=== PATIENT | female | born 1935 | race Caucasian/White ===

== ENCOUNTER → 2016-09-05 | Outpatient (REF) | payer OTHER, MEDICAID ==
[~2016-09-05] MED LIST: /FENO48TA OR; /FENT25PA TOP; /PANT40TA OR; /SUCR1TA OR; /WARF25TA OR; /WARF5TA OR; ACET65TA OR; AMLO10TA OR; BACT2CRE EX; CLAR5CHW OR; COLA100C2 OR; COUM10TA OR; DIGO0.126 OR; GLUC1000 OR; HYDR25TA7 OR; Januvia OR; KENOLOG; KENOLOG TOP; LASI20TA OR; LIDO5DIS TD; LISI10TA4 OR; LOPR50TA OR; Lovaza OR; MAGN500T2 OR; METF500T4 OR; NEUR300C OR; NIZORAL 2% TOP; OMEP20TA7 OR; PERC5TAB8 OR; POTA10CA2 OR; PROZ20CA OR; SIMV20TA2 OR; TRAM50TA2 OR; VIT D 2000 OR; VITAMIN D50000 UNT OR; VYTO10TA5 OR; ZEBE5TAB OR; ZOCO40TA OR; [UNRECOGNIZED DRUG - OTHER] PO; aquaphor TOP; bacid OR; cholecalciferol OR; nystatin powder TOP
== END ==
LOC: M SFHCPLAZ 17:14
PROVIDERS: ATTEND Dermatology
DX: H66.90 Otitis media, unspecified, unspecified ear (principal); L08.9 Local infection of the skin and subcutaneous tissue, unspecified
CPT/HCPCS: 87070; 87077; 87186; G0463

== ENCOUNTER → 2016-09-19 | Outpatient (REF) | payer OTHER, MEDICAID | LOC: M SFHCPLAZ 12:48 | PROVIDERS: ATTEND Dermatology | DX: L01.03 Bullous impetigo (principal) | CPT/HCPCS: 87070; 87077; 87186; G0463 ==

== ENCOUNTER → 2016-09-20 | Outpatient (CLI) | payer OTHER, MEDICAID ==
[2016-09-20 14:40] LABS: MEAN CORPUSCULAR HEMOGLOBIN 30.7 pg (27.0-33.0); MEAN CORPUSCULAR HGB CONC 31.1 g/dl (32.0-36.5); MEAN CORPUSCULAR VOLUME 98.7 fl (80.0-96.0); RED CELL DISTRIBUTION WIDTH 14.1 % (11.5-14.5); WHITE BLOOD COUNT 4.8 K/mm3 (4.0-10.0)
[2016-09-20 16:02] LABS: ALBUMIN 3.2 GM/DL (3.2-5.2); ALBUMIN/GLOBULIN RATIO 0.91 (1.00-1.93); BILIRUBIN,TOTAL 0.4 MG/DL (0.2-1.0); CALCIUM LEVEL 8.5 MG/DL (8.8-10.2); CREATININE FOR GFR 1.4 MG/DL (0.55-1.02); DIGOXIN LEVEL 0.1 NG/ML (0.5-2.0); FREE T4 1.02 NG/DL (0.76-1.46); GLOMERULAR FILTRATION RATE 38.6 (>39); POTASSIUM SERUM 4.3 MEQ/L (3.5-5.1); TOTAL PROTEIN 6.7 GM/DL (6.4-8.2); URIC ACID 5.7 MG/DL (2.6-6.0)
== END ==
LOC: M WUC 13:18
PROVIDERS: ATTEND Nurse Practitioner Family
DX: I10 Essential (primary) hypertension (principal); E55.9 Vitamin D deficiency, unspecified; E78.00 Pure hypercholesterolemia, unspecified; Z79.899 Other long term (current) drug therapy; M10.9 Gout, unspecified

== ENCOUNTER → 2016-10-17 | Outpatient (REF) | payer OTHER, MEDICAID ==
[2016-10-17 16:17] LABS: INR 2.53
== END ==
LOC: M SFHCPLAZ 14:03
PROVIDERS: ATTEND Dermatology
DX: Z51.81 Encounter for therapeutic drug level monitoring (principal); Z79.899 Other long term (current) drug therapy; L98.9 Disorder of the skin and subcutaneous tissue, unspecified
CPT/HCPCS: 36415; 85610; 87070; 87077; 87186; G0463

== ENCOUNTER → 2016-12-19 | Outpatient (REF) | payer OTHER, MEDICAID | LOC: M LAB REF 12:50 | PROVIDERS: ATTEND Physician Assistant Medical | DX: H60.8X3 Other otitis externa, bilateral (principal) ==

== ENCOUNTER → 2016-12-27 | Outpatient (REF) | payer OTHER, MEDICAID ==
[2016-12-27 19:55] LABS: ALBUMIN/GLOBULIN RATIO 0.94 (1.00-1.93); BILIRUBIN,TOTAL 0.5 MG/DL (0.2-1.0); CALCIUM LEVEL 8.7 MG/DL (8.8-10.2); CREATININE FOR GFR 1.46 MG/DL (0.55-1.02); DIGOXIN LEVEL 0.1 NG/ML (0.5-2.0); FREE T4 1.01 NG/DL (0.76-1.46); GLOMERULAR FILTRATION RATE 36.8 (>39); POTASSIUM SERUM 4.6 MEQ/L (3.5-5.1); TOTAL PROTEIN 6.2 GM/DL (6.4-8.2); URIC ACID 5.7 MG/DL (2.6-6.0)
== END ==
LOC: M LAB REF 17:14
PROVIDERS: ATTEND Nurse Practitioner Family
DX: E78.5 Hyperlipidemia, unspecified (principal); N18.9 Chronic kidney disease, unspecified; I48.0 Paroxysmal atrial fibrillation; E03.9 Hypothyroidism, unspecified; I12.9 Hypertensive chronic kidney disease with stage 1 through stage 4 chronic kidney disease, or unspecified chronic kidney disease; E55.9 Vitamin D deficiency, unspecified

== ENCOUNTER → 2017-01-01 | Outpatient (CLI) | payer OTHER, MEDICAID ==
[2017-01-01 13:23] LABS: ALBUMIN 3.1 GM/DL (3.2-5.2); ALBUMIN/GLOBULIN RATIO 0.89 (1.00-1.93); BILIRUBIN,DIRECT 0.2 MG/DL (0.0-0.2); BILIRUBIN,TOTAL 0.4 MG/DL (0.2-1.0); TOTAL PROTEIN 6.6 GM/DL (6.4-8.2)
== END ==
LOC: M WUC 10:06
PROVIDERS: ATTEND Nurse Practitioner Family
DX: Q82.8 Other specified congenital malformations of skin (principal); Z79.899 Other long term (current) drug therapy

== ENCOUNTER → 2017-02-15 | Outpatient (REF) | payer OTHER, MEDICAID | LOC: M LAB REF 16:47 | PROVIDERS: ATTEND Internal Medicine Nephrology | DX: N18.3 Chronic kidney disease, stage 3 (moderate) (principal); Z87.440 Personal history of urinary (tract) infections; Z79.899 Other long term (current) drug therapy ==

== ENCOUNTER → 2017-04-17 | Outpatient (CLI) | payer OTHER ==
[2017-04-17 18:31] LABS: INR 2.92
== END ==
LOC: M WUC 11:27
PROVIDERS: ATTEND Nurse Practitioner Family
DX: I48.91 Unspecified atrial fibrillation (principal)

== ENCOUNTER → 2017-09-24 | Outpatient (CLI) | payer MEDICARE ==
[2017-09-24 15:38] LABS: INR 1.33; PROTHROMBIN TIME 16.8 SECONDS (12.4-14.5)
== END ==
LOC: M LAB 14:43
DX: Z51.81 Encounter for therapeutic drug level monitoring (principal); Z79.01 Long term (current) use of anticoagulants; M79.604 Pain in right leg
CPT/HCPCS: 93971

== ENCOUNTER → 2017-11-27 | Outpatient (REF) | payer MEDICARE ==
[2017-11-27 12:42] LABS: APPEARANCE, URINE TURBID (CLEAR); BACTERIA, URINE AUTO 3+ (NEGATIVE); BILIRUBIN, URINE AUTO NEGATIVE (NEGATIVE); BLOOD, URINE BLOOD NEGATIVE (NEGATIVE); COLOR, URINE YELLOW (YELLOW); GLUCOSE, URINE (UA) AUTO NEGATIVE (NEGATIVE); KETONE, URINE AUTO NEGATIVE (NEGATIVE); LEUKOCYTE ESTERASE, URINE AUTO TRACE (NEGATIVE); MUCUS, URINE SMALL (NEGATIVE); NITRITE, URINE AUTO POSITIVE (NEGATIVE); PROTEIN, URINE AUTO 1+ mg/dL (NEGATIVE); RBC, URINE AUTO 8 /HPF (0-3); SPECIFIC GRAVITY URINE AUTO 1.017 (1.002-1.035); SQUAMOUS EPITHELIAL CELL UR AU 4 /HPF (0-6); TRIPLE PHOSPHATE CRYSTALS SMALL; UROBILINOGEN, URINE AUTO 0.2 mg/dL (0.0-2.0); WBC, URINE AUTO 24 /HPF (0-3)
== END ==
LOC: M LAB REF 12:19
DX: N39.0 Urinary tract infection, site not specified (principal)
CPT/HCPCS: 81001

== ENCOUNTER → 2017-12-03 | Outpatient (CLI) | payer MEDICARE | LOC: M WUC 12:07 | DX: M25.511 Pain in right shoulder (principal) | CPT/HCPCS: 73000 ==

== ENCOUNTER 2017-12-17 15:28 | Emergency (ER) | payer MEDICARE ==
[2017-12-17] MEDS: ONDANSETRON 4MG/2ML VIAL (J2405) IV (16:30)
[2017-12-17] MEDS: NS 500 ML IV (16:30)
[2017-12-17 16:51] LABS: BASO % 0.4 % (0.0-1.0); HEMATOCRIT 39.8 % (36.0-47.0); HEMOGLOBIN 12.4 g/dl (12.0-15.5); IMMATURE GRANULOCYTE % 0.2 % (0-3.0); LYMPH # 1.6 10^3/uL (1.5-4.5); MEAN CORPUSCULAR HEMOGLOBIN 30.4 pg (27.0-33.0); MEAN CORPUSCULAR HGB CONC 31.2 g/dl (32.0-36.5); MEAN CORPUSCULAR VOLUME 97.5 fl (80.0-96.0); MONO # 0.6 10^3/uL (0.0-0.8); MONO % 12.8 % (0.0-5.0); NEUTROPHILS # 2.6 10^3/uL (1.8-7.7); NEUTROPHILS % 54.6 % (36.0-66.0); PLATELET COUNT, AUTOMATED 235 10^3/uL (150-450); RED BLOOD COUNT 4.08 10^6/uL (4.00-5.40); RED CELL DISTRIBUTION WIDTH 14.5 % (11.5-14.5); WHITE BLOOD COUNT 4.8 10^3/uL (4.0-10.0)
[2017-12-17 16:53] LABS: INR 2.51; PROTHROMBIN TIME 27.6 SECONDS (12.1-14.4)
[2017-12-17 16:54] LABS: PARTIAL THROMBOPLASTIN TIME 51.8 SECONDS (25.4-37.6)
[2017-12-17 17:05] LABS: ALBUMIN/GLOBULIN RATIO 0.86 (1.00-1.93); ALKALINE PHOSPHATASE 58 U/L (45-117); ALT/SGPT 24 U/L (12-78); AMYLASE 157 U/L (25-115); ANION GAP 7 MEQ/L (8-16); AST/SGOT 28 U/L (7-37); BILIRUBIN,DIRECT 0.1 MG/DL (0.0-0.2); BILIRUBIN,TOTAL 0.3 MG/DL (0.2-1.0); BLOOD UREA NITROGEN 32 MG/DL (7-18); CALCIUM LEVEL 8.2 MG/DL (8.8-10.2); CARBON DIOXIDE LEVEL 28 MEQ/L (21-32); CHLORIDE LEVEL 111 MEQ/L (98-107); CK-MB VALUE MASS 3.3 NG/ML (<3.6); CPK CREATINE PHOSPHOKINASE 165 U/L (26-192); CREATININE FOR GFR 1.42 MG/DL (0.55-1.30); GLOMERULAR FILTRATION RATE 37.9 (>32); GLUCOSE, FASTING 128 MG/DL (70-100); LIPASE 213 U/L (73-393); POTASSIUM SERUM 4.7 MEQ/L (3.5-5.1); SODIUM LEVEL 146 MEQ/L (136-145); TOTAL PROTEIN 6.5 GM/DL (6.4-8.2); TROPONIN I < 0.02 NG/ML (< 0.10)
[2017-12-17 17:09] LABS: LACTIC ACID SEPSIS PROTOCOL 1.6 MMOL/L (0.4-2.0)
[2017-12-17] MEDS: NS 1,000 ML IV (17:30)
[2017-12-17 17:51] LABS: KETONE, URINE AUTO RFX NEGATIVE (NEGATIVE); NITRITE, URINE AUTO RFX NEGATIVE (NEGATIVE); RBC, URINE AUTO RFX 1 /HPF (0-3); SPECIFIC GRAVITY UR AUTO RFX 1.014 (1.002-1.035); SQUAM EPITHELIAL CELL UR AURFX 1 /HPF (0-6); WBC, URINE AUTO RFX 5 /HPF (0-3)
[2017-12-17 17:54] LABS: LEUKOCYTE ESTERASE UR AUTO RFX 1+ (NEGATIVE)
[2017-12-17] MEDS ORDERED: ISOVUE-370 76% 100ML VIAL (Q9967) As Ordered (18:19)
[2017-12-17] MEDS: LISINOPRIL 20 MG TAB PO (18:45)
== END 2017-12-17 20:55 | disposition home or self-care (01) ==
LOC: M ED 15:28
DX: R10.9 Unspecified abdominal pain (principal); K92.1 Melena; R06.02 Shortness of breath; R21 Rash and other nonspecific skin eruption; R51 Headache; E11.9 Type 2 diabetes mellitus without complications; I11.9 Hypertensive heart disease without heart failure; I25.10 Atherosclerotic heart disease of native coronary artery without angina pectoris; I48.91 Unspecified atrial fibrillation; Z87.891 Personal history of nicotine dependence; Z88.0 Allergy status to penicillin; Z88.6 Allergy status to analgesic agent; Z88.5 Allergy status to narcotic agent; Z88.8 Allergy status to other drugs, medicaments and biological substances; Z79.899 Other long term (current) drug therapy; Z79.01 Long term (current) use of anticoagulants
CPT/HCPCS: J2405

== ENCOUNTER 2018-04-02 01:19 | Inpatient (IN) | payer MEDICARE ==
[2018-04-02 03:18] LABS: BASO % 0.3 % (0.0-1.0); HEMATOCRIT 41.8 % (36.0-47.0); IMMATURE GRANULOCYTE % 0.2 % (0-3.0); LYMPH # 1.1 10^3/uL (1.5-4.5); LYMPH % 12.1 % (24.0-44.0); MEAN CORPUSCULAR HGB CONC 31.1 g/dl (32.0-36.5); MEAN CORPUSCULAR VOLUME 99.5 fl (80.0-96.0); MONO # 0.7 10^3/uL (0.0-0.8); MONO % 7.7 % (0.0-5.0); NEUTROPHILS % 79.7 % (36.0-66.0); PLATELET COUNT, AUTOMATED 235 10^3/uL (150-450); RED CELL DISTRIBUTION WIDTH 14.1 % (11.5-14.5); WHITE BLOOD COUNT 8.8 10^3/uL (4.0-10.0)
[2018-04-02 03:23] LABS: APPEARANCE, URINE CLEAR (CLEAR); BACTERIA, URINE AUTO 1+ (NEGATIVE); BILIRUBIN, URINE AUTO NEGATIVE (NEGATIVE); BLOOD, URINE BLOOD NEGATIVE (NEGATIVE); COLOR, URINE YELLOW (YELLOW); GLUCOSE, URINE (UA) AUTO NEGATIVE (NEGATIVE); KETONE, URINE AUTO NEGATIVE (NEGATIVE); LEUKOCYTE ESTERASE, URINE AUTO NEGATIVE (NEGATIVE); NITRITE, URINE AUTO POSITIVE (NEGATIVE); PROTEIN, URINE AUTO NEGATIVE (NEGATIVE); RBC, URINE AUTO 1 /HPF (0-3); SPECIFIC GRAVITY URINE AUTO 1.015 (1.002-1.035); SQUAMOUS EPITHELIAL CELL UR AU 0 /HPF (0-6); UROBILINOGEN, URINE AUTO 0.2 mg/dL (0.0-2.0); WBC, URINE AUTO 0 /HPF (0-3)
[2018-04-02] MEDS: MORPHINE 2 MG/ML 1ML SYRINGE (J2270) IV (03:37)
[2018-04-02 04:01] LABS: INR 2.17; PROTHROMBIN TIME 24.6 SECONDS (12.1-14.4)
[2018-04-02 04:02] LABS: PARTIAL THROMBOPLASTIN TIME 62.2 SECONDS (25.4-37.6)
[2018-04-02 04:22] LABS: ALBUMIN 3.1 GM/DL (3.2-5.2); ALBUMIN/GLOBULIN RATIO 0.86 (1.00-1.93); ALKALINE PHOSPHATASE 74 U/L (45-117); ALT/SGPT 28 U/L (12-78); ANION GAP 8 MEQ/L (8-16); AST/SGOT 35 U/L (7-37); BILIRUBIN,DIRECT 0.3 MG/DL (0.0-0.2); BILIRUBIN,TOTAL 0.7 MG/DL (0.2-1.0); BLOOD UREA NITROGEN 29 MG/DL (7-18); CALCIUM LEVEL 8.9 MG/DL (8.8-10.2); CARBON DIOXIDE LEVEL 32 MEQ/L (21-32); CHLORIDE LEVEL 102 MEQ/L (98-107); CPK CREATINE PHOSPHOKINASE 136 U/L (26-192); CREATININE FOR GFR 1.12 MG/DL (0.55-1.30); GLOMERULAR FILTRATION RATE 49.8 (>32); GLUCOSE, FASTING 125 MG/DL (70-100); LIPASE 87 U/L (73-393); MB/CK RELATIVE INDEX 1.62 (< OR =4); POTASSIUM SERUM 4.2 MEQ/L (3.5-5.1); SODIUM LEVEL 142 MEQ/L (136-145); TOTAL PROTEIN 6.7 GM/DL (6.4-8.2); TROPONIN I 0.02 NG/ML (< 0.10)
[2018-04-02] MEDS: NS 500 ML IV (04:30)
[2018-04-02] MEDS ORDERED: ISOVUE-370 76% 100ML VIAL (Q9967) As Ordered (04:34)
[2018-04-02] MEDS: MORPHINE 4 MG/ML 1ML VIAL/SYRINGE (J2270) IV (05:00)
[2018-04-02] MEDS: METOCLOPRAMIDE INJ 10MG/2ML VIAL (J2765) IV (05:00)
[2018-04-02] MEDS: MIRALAX *UNIT DOSE* 17GM PACKET PO (09:00)
[2018-04-02] MEDS ORDERED: GLUCOSE 4 GM CHEW TABLET PO (11:45)
[2018-04-02] MEDS ORDERED: GLUCAGON FOR INJ 1 MG VIAL (J1610) SC (11:45)
[2018-04-02] MEDS ORDERED: DEXTROSE 50% 50 ML SYRINGE IV (11:45)
[2018-04-02 12:00] LABS: INR 2.14; PROTHROMBIN TIME 24.3 SECONDS (12.1-14.4)
[2018-04-02] MEDS: HumaLOG INSULIN (NovoLOG) PER UNIT SC ×3 (12:00→21:55)
[2018-04-02] MEDS ORDERED: IPRATROPIUM 0.5MG/ALBUTEROL 2.5MG INH SOL UD 3ML (DUONEB)(J7620) NEB (12:15)
[2018-04-02] MEDS: FLUoxetine 20 MG CAP PO (12:31)
[2018-04-02] MEDS: busPIRone 10 MG TAB PO ×2 (12:31→21:55)
[2018-04-02] MEDS: DOCUSATE SODIUM 100 MG CAP PO ×2 (12:31→21:55)
[2018-04-02] MEDS: FUROSEMIDE 20 MG TAB PO (12:31)
[2018-04-02] MEDS: CALCITRIOL 0.25 MCG CAP (S0169) PO (12:31)
[2018-04-02] MEDS: LISINOPRIL 20 MG TAB PO (12:32)
[2018-04-02] MEDS: NS 1,000 ML IV (12:32)
[2018-04-02 12:33] LABS: BEDSIDE GLUCOSE 108 MG/DL (83-110)
[2018-04-02] MEDS: NYSTATIN OINTMENT 15 GM TOP ×2 (13:55→21:56)
[2018-04-02 14:15] LABS: ESTIMATED AVERAGE GLUCOSE 111 MG/DL (60-110); HEMOGLOBIN A1c 5.5 %
[2018-04-02] MEDS: WARFARIN SOD 3 MG TAB PO (16:40)
[2018-04-02] MEDS: GABAPENTIN 300 MG CAP PO ×2 (16:40→21:55)
[2018-04-02 17:23] LABS: BEDSIDE GLUCOSE 123 MG/DL (83-110)
[2018-04-02 20:42] LABS: BEDSIDE GLUCOSE 145 MG/DL (83-110)
[2018-04-02] MEDS ORDERED: TRIAMCINOLONE ACET 0.1% OINTMENT 15 GM TOP (21:00)
[2018-04-02] MEDS: FENOFIBRATE 145 MG TAB (TRICOR) PO (21:55)
[2018-04-02] MEDS: ONDANSETRON 4MG/2ML VIAL (J2405) IV (21:56)
[2018-04-02] MEDS: traMADol 50 MG TAB PO (21:57)
[2018-04-03] MEDS: NS 1,000 ML IV ×2 (02:07→13:24)
[2018-04-03] MEDS: traMADol 50 MG TAB PO ×3 (05:35→22:26)
[2018-04-03 06:38] LABS: BASO % 0.3 % (0.0-1.0); HEMATOCRIT 39.3 % (36.0-47.0); HEMOGLOBIN 12.1 g/dl (12.0-15.5); IMMATURE GRANULOCYTE % 0.3 % (0-3.0); LYMPH # 1.4 10^3/uL (1.5-4.5); LYMPH % 21.4 % (24.0-44.0); MEAN CORPUSCULAR HEMOGLOBIN 30.8 pg (27.0-33.0); MEAN CORPUSCULAR HGB CONC 30.8 g/dl (32.0-36.5); MONO # 0.6 10^3/uL (0.0-0.8); MONO % 9.4 % (0.0-5.0); NEUTROPHILS # 4.4 10^3/uL (1.8-7.7); NEUTROPHILS % 68.6 % (36.0-66.0); PLATELET COUNT, AUTOMATED 225 10^3/uL (150-450); RED BLOOD COUNT 3.93 10^6/uL (4.00-5.40); RED CELL DISTRIBUTION WIDTH 13.8 % (11.5-14.5); WHITE BLOOD COUNT 6.5 10^3/uL (4.0-10.0)
[2018-04-03 06:48] LABS: INR 1.82; PROTHROMBIN TIME 21.4 SECONDS (12.1-14.4)
[2018-04-03 06:59] LABS: ANION GAP 4 MEQ/L (8-16); BLOOD UREA NITROGEN 30 MG/DL (7-18); CALCIUM LEVEL 8.6 MG/DL (8.8-10.2); CARBON DIOXIDE LEVEL 34 MEQ/L (21-32); CHLORIDE LEVEL 105 MEQ/L (98-107); CREATININE FOR GFR 1.15 MG/DL (0.55-1.30); GLOMERULAR FILTRATION RATE 48.3 (>32); GLUCOSE, FASTING 109 MG/DL (70-100); POTASSIUM SERUM 4.4 MEQ/L (3.5-5.1); SODIUM LEVEL 143 MEQ/L (136-145)
[2018-04-03] MEDS: CALCITRIOL 0.25 MCG CAP (S0169) PO (08:06)
[2018-04-03] MEDS: busPIRone 10 MG TAB PO ×2 (08:06→22:24)
[2018-04-03] MEDS: FUROSEMIDE 20 MG TAB PO (08:06)
[2018-04-03] MEDS: GABAPENTIN 300 MG CAP PO ×3 (08:06→22:24)
[2018-04-03] MEDS: MIRALAX *UNIT DOSE* 17GM PACKET PO (08:06)
[2018-04-03] MEDS: FLUoxetine 20 MG CAP PO (08:06)
[2018-04-03] MEDS: DOCUSATE SODIUM 100 MG CAP PO ×2 (08:06→22:24)
[2018-04-03] MEDS: HumaLOG INSULIN (NovoLOG) PER UNIT SC ×4 (08:07→22:24)
[2018-04-03] MEDS: LISINOPRIL 20 MG TAB PO (08:07)
[2018-04-03] MEDS: NYSTATIN OINTMENT 15 GM TOP (09:00)
[2018-04-03 11:41] LABS: BEDSIDE GLUCOSE 130 MG/DL (83-110)
[2018-04-03] MEDS: NYSTATIN 100,000 UNITS/GM TOPICAL PWD 15 GM TOP ×2 (11:54→22:25)
[2018-04-03 16:45] LABS: BEDSIDE GLUCOSE 118 MG/DL (83-110)
[2018-04-03] MEDS: WARFARIN SOD 3 MG TAB PO (17:03)
[2018-04-03] MEDS: FLUBLOK(EGG FREE)(QUAD)INFLUENZA VACC 0.5ML SYRINGE (90682)18YRS&OLDER IM (17:04)
[2018-04-03 19:57] LABS: BEDSIDE GLUCOSE 135 MG/DL (83-110)
[2018-04-03] MEDS: FENOFIBRATE 145 MG TAB (TRICOR) PO (22:24)
[2018-04-03] MEDS: SENNA 8.6 MG TAB (SENOKOT) PO (22:25)
[2018-04-04] MEDS: NS 1,000 ML IV ×2 (04:22→17:11)
[2018-04-04 06:35] LABS: BEDSIDE GLUCOSE 82 MG/DL (83-110)
[2018-04-04] MEDS: HumaLOG INSULIN (NovoLOG) PER UNIT SC ×4 (07:30→21:02)
[2018-04-04] MEDS: CALCITRIOL 0.25 MCG CAP (S0169) PO (08:28)
[2018-04-04] MEDS: GABAPENTIN 300 MG CAP PO ×3 (08:29→21:02)
[2018-04-04] MEDS: MIRALAX *UNIT DOSE* 17GM PACKET PO (08:29)
[2018-04-04] MEDS: busPIRone 10 MG TAB PO ×2 (08:29→21:02)
[2018-04-04] MEDS: FLUoxetine 20 MG CAP PO (08:29)
[2018-04-04] MEDS: FUROSEMIDE 20 MG TAB PO (08:29)
[2018-04-04] MEDS: DOCUSATE SODIUM 100 MG CAP PO ×2 (08:29→21:02)
[2018-04-04] MEDS: LISINOPRIL 20 MG TAB PO (08:31)
[2018-04-04] MEDS: traMADol 50 MG TAB PO ×3 (08:42→23:47)
[2018-04-04] MEDS: NYSTATIN 100,000 UNITS/GM TOPICAL PWD 15 GM TOP ×2 (08:45→21:03)
[2018-04-04 10:54] LABS: HEMATOCRIT 44.2 % (36.0-47.0); HEMOGLOBIN 13.5 g/dl (12.0-15.5); MEAN CORPUSCULAR HEMOGLOBIN 31.3 pg (27.0-33.0); MEAN CORPUSCULAR HGB CONC 30.5 g/dl (32.0-36.5); MEAN CORPUSCULAR VOLUME 102.6 fl (80.0-96.0); PLATELET COUNT, AUTOMATED 226 10^3/uL (150-450); RED BLOOD COUNT 4.31 10^6/uL (4.00-5.40); RED CELL DISTRIBUTION WIDTH 13.6 % (11.5-14.5); WHITE BLOOD COUNT 6.8 10^3/uL (4.0-10.0)
[2018-04-04 11:07] LABS: INR 1.57
[2018-04-04 11:26] LABS: ANION GAP 3 MEQ/L (8-16); BLOOD UREA NITROGEN 28 MG/DL (7-18); CALCIUM LEVEL 8.9 MG/DL (8.8-10.2); CARBON DIOXIDE LEVEL 34 MEQ/L (21-32); CHLORIDE LEVEL 103 MEQ/L (98-107); GLUCOSE, FASTING 146 MG/DL (70-100); POTASSIUM SERUM 4.7 MEQ/L (3.5-5.1); SODIUM LEVEL 140 MEQ/L (136-145)
[2018-04-04 11:31] LABS: BEDSIDE GLUCOSE 300 MG/DL (83-110)
[2018-04-04 11:43] LABS: BEDSIDE GLUCOSE 149 MG/DL (83-110)
[2018-04-04] MEDS: MOM 30ML SUSPENSION UDC PO (12:22)
[2018-04-04 16:48] LABS: BEDSIDE GLUCOSE 121 MG/DL (83-110)
[2018-04-04] MEDS: WARFARIN SOD 2 MG TAB PO (16:53)
[2018-04-04] MEDS: WARFARIN SOD 3 MG TAB PO (16:53)
[2018-04-04] MEDS: CIPROFLOXACIN 250 MG TAB PO (17:12)
[2018-04-04 20:31] LABS: BEDSIDE GLUCOSE 135 MG/DL (83-110)
[2018-04-04] MEDS: FENOFIBRATE 145 MG TAB (TRICOR) PO (21:02)
[2018-04-05] MEDS: NS 1,000 ML IV (05:33)
[2018-04-05] MEDS: CIPROFLOXACIN 250 MG TAB PO ×2 (05:33→17:32)
[2018-04-05 06:04] LABS: HEMATOCRIT 36.3 % (36.0-47.0); HEMOGLOBIN 11.2 g/dl (12.0-15.5); MEAN CORPUSCULAR HEMOGLOBIN 30.7 pg (27.0-33.0); MEAN CORPUSCULAR HGB CONC 30.9 g/dl (32.0-36.5); MEAN CORPUSCULAR VOLUME 99.5 fl (80.0-96.0); PLATELET COUNT, AUTOMATED 224 10^3/uL (150-450); RED BLOOD COUNT 3.65 10^6/uL (4.00-5.40); RED CELL DISTRIBUTION WIDTH 13.4 % (11.5-14.5); WHITE BLOOD COUNT 7.3 10^3/uL (4.0-10.0)
[2018-04-05 06:16] LABS: INR 1.76; PROTHROMBIN TIME 20.9 SECONDS (12.1-14.4)
[2018-04-05 06:30] LABS: ANION GAP 3 MEQ/L (8-16); BLOOD UREA NITROGEN 30 MG/DL (7-18); CALCIUM LEVEL 8.6 MG/DL (8.8-10.2); CARBON DIOXIDE LEVEL 33 MEQ/L (21-32); CHLORIDE LEVEL 103 MEQ/L (98-107); CREATININE FOR GFR 0.96 MG/DL (0.55-1.30); GLOMERULAR FILTRATION RATE 59.5 (>32); GLUCOSE, FASTING 92 MG/DL (70-100); POTASSIUM SERUM 4.4 MEQ/L (3.5-5.1); SODIUM LEVEL 139 MEQ/L (136-145)
[2018-04-05] MEDS: HumaLOG INSULIN (NovoLOG) PER UNIT SC ×4 (06:58→20:39)
[2018-04-05] MEDS: NYSTATIN 100,000 UNITS/GM TOPICAL PWD 15 GM TOP ×2 (07:27→20:40)
[2018-04-05] MEDS: CALCITRIOL 0.25 MCG CAP (S0169) PO (07:27)
[2018-04-05] MEDS: SENNA 8.6 MG TAB (SENOKOT) PO (07:28)
[2018-04-05] MEDS: DOCUSATE SODIUM 100 MG CAP PO ×2 (07:28→20:39)
[2018-04-05] MEDS: busPIRone 10 MG TAB PO ×2 (07:28→20:39)
[2018-04-05] MEDS: MIRALAX *UNIT DOSE* 17GM PACKET PO (07:28)
[2018-04-05] MEDS: traMADol 50 MG TAB PO ×3 (07:28→22:48)
[2018-04-05] MEDS: FLUoxetine 20 MG CAP PO (07:29)
[2018-04-05] MEDS: FUROSEMIDE 20 MG TAB PO (07:29)
[2018-04-05] MEDS: GABAPENTIN 300 MG CAP PO ×3 (07:29→20:39)
[2018-04-05] MEDS: LISINOPRIL 20 MG TAB PO (07:31)
[2018-04-05] MEDS: MOM 30ML SUSPENSION UDC PO (12:44)
[2018-04-05] MEDS: WARFARIN SOD 3 MG TAB PO (16:08)
[2018-04-05 20:39] LABS: BEDSIDE GLUCOSE 159 MG/DL (83-110)
[2018-04-05] MEDS: FENOFIBRATE 145 MG TAB (TRICOR) PO (20:39)
[2018-04-06] MEDS: CIPROFLOXACIN 250 MG TAB PO ×2 (05:23→17:15)
[2018-04-06 05:47] LABS: HEMATOCRIT 37.5 % (36.0-47.0); HEMOGLOBIN 11.9 g/dl (12.0-15.5); MEAN CORPUSCULAR HEMOGLOBIN 30.6 pg (27.0-33.0); MEAN CORPUSCULAR HGB CONC 31.7 g/dl (32.0-36.5); MEAN CORPUSCULAR VOLUME 96.4 fl (80.0-96.0); PLATELET COUNT, AUTOMATED 235 10^3/uL (150-450); RED BLOOD COUNT 3.89 10^6/uL (4.00-5.40); RED CELL DISTRIBUTION WIDTH 13.1 % (11.5-14.5); WHITE BLOOD COUNT 7.1 10^3/uL (4.0-10.0)
[2018-04-06 05:59] LABS: INR 1.75; PROTHROMBIN TIME 20.7 SECONDS (12.1-14.4)
[2018-04-06 06:05] LABS: ANION GAP 5 MEQ/L (8-16); BLOOD UREA NITROGEN 28 MG/DL (7-18); CALCIUM LEVEL 8.7 MG/DL (8.8-10.2); CARBON DIOXIDE LEVEL 33 MEQ/L (21-32); CHLORIDE LEVEL 98 MEQ/L (98-107); CREATININE FOR GFR 0.87 MG/DL (0.55-1.30); GLOMERULAR FILTRATION RATE > 60.0 (>32); GLUCOSE, FASTING 94 MG/DL (70-100); POTASSIUM SERUM 4.2 MEQ/L (3.5-5.1); SODIUM LEVEL 136 MEQ/L (136-145)
[2018-04-06] MEDS: HumaLOG INSULIN (NovoLOG) PER UNIT SC ×4 (08:12→22:23)
[2018-04-06] MEDS: MIRALAX *UNIT DOSE* 17GM PACKET PO (10:32)
[2018-04-06] MEDS: CALCITRIOL 0.25 MCG CAP (S0169) PO (10:32)
[2018-04-06] MEDS: DOCUSATE SODIUM 100 MG CAP PO ×2 (10:33→22:22)
[2018-04-06] MEDS: FUROSEMIDE 20 MG TAB PO (10:33)
[2018-04-06] MEDS: traMADol 50 MG TAB PO ×3 (10:33→22:24)
[2018-04-06] MEDS: busPIRone 10 MG TAB PO ×2 (10:33→22:22)
[2018-04-06] MEDS: GABAPENTIN 300 MG CAP PO ×3 (10:33→22:22)
[2018-04-06] MEDS: FLUoxetine 20 MG CAP PO (10:33)
[2018-04-06] MEDS: LISINOPRIL 20 MG TAB PO (10:40)
[2018-04-06] MEDS: NYSTATIN 100,000 UNITS/GM TOPICAL PWD 15 GM TOP ×2 (10:41→22:23)
[2018-04-06 11:47] LABS: BEDSIDE GLUCOSE 132 MG/DL (83-110)
[2018-04-06] MEDS: FLEET ENEMA PR (14:51)
[2018-04-06 17:09] LABS: BEDSIDE GLUCOSE 122 MG/DL (83-110)
[2018-04-06] MEDS: WARFARIN SOD 5 MG TAB PO (17:16)
[2018-04-06 19:56] LABS: BEDSIDE GLUCOSE 143 MG/DL (83-110)
[2018-04-06] MEDS: FENOFIBRATE 145 MG TAB (TRICOR) PO (22:23)
[2018-04-06] MEDS: SENNA 8.6 MG TAB (SENOKOT) PO (22:24)
[2018-04-07] MEDS: diphenhydrAMINE 25 MG CAP PO (01:46)
[2018-04-07] MEDS: TRIAMCINOLONE ACET 0.1% CREAM 80 GM TOP ×3 (01:47→21:46)
[2018-04-07] MEDS: CIPROFLOXACIN 250 MG TAB PO (05:38)
[2018-04-07 06:00] LABS: HEMATOCRIT 38.9 % (36.0-47.0); HEMOGLOBIN 12.3 g/dl (12.0-15.5); MEAN CORPUSCULAR HEMOGLOBIN 30.5 pg (27.0-33.0); MEAN CORPUSCULAR HGB CONC 31.6 g/dl (32.0-36.5); MEAN CORPUSCULAR VOLUME 96.5 fl (80.0-96.0); PLATELET COUNT, AUTOMATED 272 10^3/uL (150-450); RED BLOOD COUNT 4.03 10^6/uL (4.00-5.40); RED CELL DISTRIBUTION WIDTH 13.2 % (11.5-14.5); WHITE BLOOD COUNT 7.4 10^3/uL (4.0-10.0)
[2018-04-07 06:12] LABS: INR 1.65; PROTHROMBIN TIME 19.8 SECONDS (12.1-14.4)
[2018-04-07 06:18] LABS: ANION GAP 5 MEQ/L (8-16); BLOOD UREA NITROGEN 30 MG/DL (7-18); CALCIUM LEVEL 8.7 MG/DL (8.8-10.2); CARBON DIOXIDE LEVEL 33 MEQ/L (21-32); CHLORIDE LEVEL 100 MEQ/L (98-107); CREATININE FOR GFR 1.01 MG/DL (0.55-1.30); GLOMERULAR FILTRATION RATE 56.1 (>32); GLUCOSE, FASTING 98 MG/DL (70-100); POTASSIUM SERUM 3.8 MEQ/L (3.5-5.1); SODIUM LEVEL 138 MEQ/L (136-145)
[2018-04-07] MEDS: HumaLOG INSULIN (NovoLOG) PER UNIT SC ×4 (07:11→21:45)
[2018-04-07] MEDS ORDERED: methylPREDNISolone INJ 125 MG/2 ML VIAL (J2930) IV (09:00)
[2018-04-07] MEDS: CALCITRIOL 0.25 MCG CAP (S0169) PO (09:50)
[2018-04-07] MEDS: MIRALAX *UNIT DOSE* 17GM PACKET PO (09:50)
[2018-04-07] MEDS: FUROSEMIDE 20 MG TAB PO (09:50)
[2018-04-07] MEDS: NYSTATIN 100,000 UNITS/GM TOPICAL PWD 15 GM TOP ×2 (09:50→21:45)
[2018-04-07] MEDS: FLUoxetine 20 MG CAP PO (09:51)
[2018-04-07] MEDS: traMADol 50 MG TAB PO ×3 (09:51→21:47)
[2018-04-07] MEDS: DOCUSATE SODIUM 100 MG CAP PO ×2 (09:51→21:44)
[2018-04-07] MEDS: busPIRone 10 MG TAB PO ×2 (09:51→21:44)
[2018-04-07] MEDS: GABAPENTIN 300 MG CAP PO ×3 (09:58→21:44)
[2018-04-07] MEDS: LISINOPRIL 20 MG TAB PO (09:58)
[2018-04-07] MEDS: methylPREDNISolone INJ 125 MG/2 ML VIAL (J2930) IM (09:58)
[2018-04-07 11:52] LABS: BEDSIDE GLUCOSE 108 MG/DL (83-110)
[2018-04-07 16:54] LABS: BEDSIDE GLUCOSE 142 MG/DL (83-110)
[2018-04-07] MEDS: WARFARIN SOD 2.5 MG TAB PO (17:03)
[2018-04-07] MEDS: WARFARIN SOD 5 MG TAB PO (17:03)
[2018-04-07 20:30] LABS: BEDSIDE GLUCOSE 176 MG/DL (83-110)
[2018-04-07] MEDS: FENOFIBRATE 145 MG TAB (TRICOR) PO (21:45)
[2018-04-07] MEDS: MOM 30ML SUSPENSION UDC PO (21:46)
[2018-04-07] MEDS: SENNA 8.6 MG TAB (SENOKOT) PO (21:46)
[2018-04-08 06:08] LABS: HEMATOCRIT 38.4 % (36.0-47.0); HEMOGLOBIN 12.1 g/dl (12.0-15.5); MEAN CORPUSCULAR HEMOGLOBIN 30.8 pg (27.0-33.0); MEAN CORPUSCULAR HGB CONC 31.5 g/dl (32.0-36.5); MEAN CORPUSCULAR VOLUME 97.7 fl (80.0-96.0); PLATELET COUNT, AUTOMATED 288 10^3/uL (150-450); RED BLOOD COUNT 3.93 10^6/uL (4.00-5.40); RED CELL DISTRIBUTION WIDTH 13.3 % (11.5-14.5); WHITE BLOOD COUNT 9.7 10^3/uL (4.0-10.0)
[2018-04-08] MEDS: traMADol 50 MG TAB PO ×4 (06:12→21:20)
[2018-04-08 06:30] LABS: ANION GAP 4 MEQ/L (8-16); BLOOD UREA NITROGEN 43 MG/DL (7-18); CALCIUM LEVEL 8.8 MG/DL (8.8-10.2); CARBON DIOXIDE LEVEL 32 MEQ/L (21-32); CHLORIDE LEVEL 103 MEQ/L (98-107); CREATININE FOR GFR 1.23 MG/DL (0.55-1.30); GLOMERULAR FILTRATION RATE 44.7 (>32); GLUCOSE, FASTING 90 MG/DL (70-100); INR 2.31; POTASSIUM SERUM 4.2 MEQ/L (3.5-5.1); PROTHROMBIN TIME 25.8 SECONDS (12.1-14.4); SODIUM LEVEL 139 MEQ/L (136-145)
[2018-04-08] MEDS: HumaLOG INSULIN (NovoLOG) PER UNIT SC ×4 (07:24→21:14)
[2018-04-08] MEDS: CALCITRIOL 0.25 MCG CAP (S0169) PO (07:59)
[2018-04-08] MEDS: GABAPENTIN 300 MG CAP PO ×3 (07:59→21:19)
[2018-04-08] MEDS: FUROSEMIDE 20 MG TAB PO (07:59)
[2018-04-08] MEDS: busPIRone 10 MG TAB PO ×2 (07:59→21:19)
[2018-04-08] MEDS: FLUoxetine 20 MG CAP PO (07:59)
[2018-04-08] MEDS: DOCUSATE SODIUM 100 MG CAP PO ×2 (07:59→21:21)
[2018-04-08] MEDS: LISINOPRIL 20 MG TAB PO (08:00)
[2018-04-08] MEDS: MIRALAX *UNIT DOSE* 17GM PACKET PO (08:00)
[2018-04-08] MEDS: NYSTATIN 100,000 UNITS/GM TOPICAL PWD 15 GM TOP ×2 (08:00→21:21)
[2018-04-08] MEDS: FLUCONAZOLE 100 MG TAB PO (10:15)
[2018-04-08 11:46] LABS: BEDSIDE GLUCOSE 94 MG/DL (83-110)
[2018-04-08 16:41] LABS: BEDSIDE GLUCOSE 128 MG/DL (83-110)
[2018-04-08] MEDS: WARFARIN SOD 5 MG TAB PO (17:09)
[2018-04-08 20:20] LABS: BEDSIDE GLUCOSE 155 MG/DL (83-110)
[2018-04-08] MEDS: FENOFIBRATE 145 MG TAB (TRICOR) PO (21:19)
[2018-04-08] MEDS: TRIAMCINOLONE ACET 0.1% CREAM 80 GM TOP (21:21)
[2018-04-09] MEDS: traMADol 50 MG TAB PO ×3 (05:37→21:09)
[2018-04-09 06:10] LABS: HEMATOCRIT 38.1 % (36.0-47.0); HEMOGLOBIN 11.8 g/dl (12.0-15.5); MEAN CORPUSCULAR HEMOGLOBIN 30.4 pg (27.0-33.0); MEAN CORPUSCULAR VOLUME 98.2 fl (80.0-96.0); PLATELET COUNT, AUTOMATED 287 10^3/uL (150-450); RED BLOOD COUNT 3.88 10^6/uL (4.00-5.40); RED CELL DISTRIBUTION WIDTH 13.5 % (11.5-14.5); WHITE BLOOD COUNT 8.4 10^3/uL (4.0-10.0)
[2018-04-09 06:23] LABS: INR 3.32; PROTHROMBIN TIME 34.5 SECONDS (12.1-14.4)
[2018-04-09 06:31] LABS: ANION GAP 5 MEQ/L (8-16); BLOOD UREA NITROGEN 48 MG/DL (7-18); CALCIUM LEVEL 8.9 MG/DL (8.8-10.2); CARBON DIOXIDE LEVEL 33 MEQ/L (21-32); CHLORIDE LEVEL 102 MEQ/L (98-107); CREATININE FOR GFR 1.27 MG/DL (0.55-1.30); GLOMERULAR FILTRATION RATE 43.1 (>32); GLUCOSE, FASTING 92 MG/DL (70-100); POTASSIUM SERUM 4.5 MEQ/L (3.5-5.1); SODIUM LEVEL 140 MEQ/L (136-145)
[2018-04-09] MEDS: HumaLOG INSULIN (NovoLOG) PER UNIT SC ×4 (07:30→21:10)
[2018-04-09] MEDS: FLUCONAZOLE 100 MG TAB PO (08:31)
[2018-04-09] MEDS: FLUoxetine 20 MG CAP PO (08:31)
[2018-04-09] MEDS: busPIRone 10 MG TAB PO ×2 (08:31→21:08)
[2018-04-09] MEDS: GABAPENTIN 300 MG CAP PO ×3 (08:31→21:08)
[2018-04-09] MEDS: CALCITRIOL 0.25 MCG CAP (S0169) PO (08:32)
[2018-04-09] MEDS: FUROSEMIDE 20 MG TAB PO (08:32)
[2018-04-09] MEDS: NYSTATIN 100,000 UNITS/GM TOPICAL PWD 15 GM TOP ×2 (08:32→21:08)
[2018-04-09] MEDS: LISINOPRIL 20 MG TAB PO (08:32)
[2018-04-09] MEDS: MIRALAX *UNIT DOSE* 17GM PACKET PO (08:32)
[2018-04-09] MEDS: DOCUSATE SODIUM 100 MG CAP PO ×2 (08:40→21:10)
[2018-04-09 11:47] LABS: BEDSIDE GLUCOSE 149 MG/DL (83-110)
[2018-04-09 16:27] LABS: KETONE, URINE AUTO RFX NEGATIVE (NEGATIVE); LEUKOCYTE ESTERASE UR AUTO RFX NEGATIVE (NEGATIVE); MUCUS, URINE RFX SMALL (NEGATIVE); NITRITE, URINE AUTO RFX NEGATIVE (NEGATIVE); RBC, URINE AUTO RFX 0 /HPF (0-3); SPECIFIC GRAVITY UR AUTO RFX 1.014 (1.002-1.035); SQUAM EPITHELIAL CELL UR AURFX 0 /HPF (0-6); WBC, URINE AUTO RFX 0 /HPF (0-3)
[2018-04-09 17:18] LABS: BEDSIDE GLUCOSE 103 MG/DL (83-110)
[2018-04-09] MEDS: WARFARIN SOD 5 MG TAB PO (17:34)
[2018-04-09 20:29] LABS: BEDSIDE GLUCOSE 162 MG/DL (83-110)
[2018-04-09] MEDS: FENOFIBRATE 145 MG TAB (TRICOR) PO (21:10)
[2018-04-09] MEDS: TRIAMCINOLONE ACET 0.1% CREAM 80 GM TOP (21:11)
[2018-04-10] MEDS: traMADol 50 MG TAB PO ×4 (01:31→21:21)
[2018-04-10 06:29] LABS: HEMATOCRIT 39.2 % (36.0-47.0); HEMOGLOBIN 12.3 g/dl (12.0-15.5); MEAN CORPUSCULAR HGB CONC 31.4 g/dl (32.0-36.5); MEAN CORPUSCULAR VOLUME 98.7 fl (80.0-96.0); PLATELET COUNT, AUTOMATED 311 10^3/uL (150-450); RED BLOOD COUNT 3.97 10^6/uL (4.00-5.40); RED CELL DISTRIBUTION WIDTH 13.2 % (11.5-14.5); WHITE BLOOD COUNT 8.1 10^3/uL (4.0-10.0)
[2018-04-10 06:46] LABS: INR 3.67; PROTHROMBIN TIME 37.3 SECONDS (12.1-14.4)
[2018-04-10 06:56] LABS: ANION GAP 4 MEQ/L (8-16); BLOOD UREA NITROGEN 49 MG/DL (7-18); CALCIUM LEVEL 8.9 MG/DL (8.8-10.2); CARBON DIOXIDE LEVEL 34 MEQ/L (21-32); CHLORIDE LEVEL 103 MEQ/L (98-107); GLUCOSE, FASTING 89 MG/DL (70-100); POTASSIUM SERUM 4.4 MEQ/L (3.5-5.1); SODIUM LEVEL 141 MEQ/L (136-145)
[2018-04-10] MEDS: HumaLOG INSULIN (NovoLOG) PER UNIT SC ×4 (07:30→21:08)
[2018-04-10] MEDS: NYSTATIN 100,000 UNITS/GM TOPICAL PWD 15 GM TOP ×2 (08:12→21:21)
[2018-04-10] MEDS: GABAPENTIN 300 MG CAP PO ×3 (08:12→21:20)
[2018-04-10] MEDS: CALCITRIOL 0.25 MCG CAP (S0169) PO (08:12)
[2018-04-10] MEDS: MIRALAX *UNIT DOSE* 17GM PACKET PO (08:12)
[2018-04-10] MEDS: FUROSEMIDE 20 MG TAB PO (08:12)
[2018-04-10] MEDS: FLUCONAZOLE 100 MG TAB PO (08:12)
[2018-04-10] MEDS: busPIRone 10 MG TAB PO ×2 (08:12→21:20)
[2018-04-10] MEDS: FLUoxetine 20 MG CAP PO (08:12)
[2018-04-10] MEDS: TRIAMCINOLONE ACET 0.1% CREAM 80 GM TOP ×2 (08:13→21:21)
[2018-04-10] MEDS: DOCUSATE SODIUM 100 MG CAP PO ×2 (08:49→21:20)
[2018-04-10 11:40] LABS: BEDSIDE GLUCOSE 84 MG/DL (83-110)
[2018-04-10 16:28] LABS: BEDSIDE GLUCOSE 120 MG/DL (83-110)
[2018-04-10] MEDS: WARFARIN SOD 5 MG TAB PO (17:04)
[2018-04-10 20:46] LABS: BEDSIDE GLUCOSE 119 MG/DL (83-110)
[2018-04-10] MEDS: FENOFIBRATE 145 MG TAB (TRICOR) PO (21:20)
[2018-04-10 21:36] LABS: HEMATOCRIT 45.5 % (36.0-47.0); HEMOGLOBIN 13.9 g/dl (12.0-15.5); MEAN CORPUSCULAR HEMOGLOBIN 30.5 pg (27.0-33.0); MEAN CORPUSCULAR HGB CONC 30.5 g/dl (32.0-36.5); PLATELET COUNT, AUTOMATED 303 10^3/uL (150-450); RED BLOOD COUNT 4.55 10^6/uL (4.00-5.40); RED CELL DISTRIBUTION WIDTH 13.2 % (11.5-14.5); WHITE BLOOD COUNT 8.6 10^3/uL (4.0-10.0)
[2018-04-11 05:52] LABS: HEMATOCRIT 40.3 % (36.0-47.0); HEMOGLOBIN 12.3 g/dl (12.0-15.5); MEAN CORPUSCULAR HEMOGLOBIN 30.3 pg (27.0-33.0); MEAN CORPUSCULAR HGB CONC 30.5 g/dl (32.0-36.5); MEAN CORPUSCULAR VOLUME 99.3 fl (80.0-96.0); PLATELET COUNT, AUTOMATED 320 10^3/uL (150-450); RED BLOOD COUNT 4.06 10^6/uL (4.00-5.40); RED CELL DISTRIBUTION WIDTH 13.2 % (11.5-14.5); WHITE BLOOD COUNT 7.9 10^3/uL (4.0-10.0)
[2018-04-11 06:04] LABS: INR 4.12; PROTHROMBIN TIME 40.9 SECONDS (12.1-14.4)
[2018-04-11 06:13] LABS: ANION GAP 3 MEQ/L (8-16); BLOOD UREA NITROGEN 45 MG/DL (7-18); CALCIUM LEVEL 8.7 MG/DL (8.8-10.2); CARBON DIOXIDE LEVEL 32 MEQ/L (21-32); CHLORIDE LEVEL 103 MEQ/L (98-107); CREATININE FOR GFR 1.18 MG/DL (0.55-1.30); GLOMERULAR FILTRATION RATE 46.9 (>32); GLUCOSE, FASTING 93 MG/DL (70-100); POTASSIUM SERUM 4.5 MEQ/L (3.5-5.1); SODIUM LEVEL 138 MEQ/L (136-145)
[2018-04-11] MEDS: HumaLOG INSULIN (NovoLOG) PER UNIT SC ×4 (07:14→21:00)
[2018-04-11] MEDS: FLUoxetine 20 MG CAP PO (08:20)
[2018-04-11] MEDS: MIRALAX *UNIT DOSE* 17GM PACKET PO (08:20)
[2018-04-11] MEDS: CALCITRIOL 0.25 MCG CAP (S0169) PO (08:20)
[2018-04-11] MEDS: GABAPENTIN 300 MG CAP PO ×3 (08:20→20:30)
[2018-04-11] MEDS: FLUCONAZOLE 100 MG TAB PO (08:20)
[2018-04-11] MEDS: DOCUSATE SODIUM 100 MG CAP PO ×2 (08:20→20:30)
[2018-04-11] MEDS: FUROSEMIDE 20 MG TAB PO (08:21)
[2018-04-11] MEDS: NYSTATIN 100,000 UNITS/GM TOPICAL PWD 15 GM TOP ×2 (08:21→21:00)
[2018-04-11] MEDS: busPIRone 10 MG TAB PO ×2 (08:23→20:30)
[2018-04-11] MEDS: TRIAMCINOLONE ACET 0.1% CREAM 80 GM TOP (08:23)
[2018-04-11] MEDS: traMADol 50 MG TAB PO ×4 (09:56→21:37)
[2018-04-11 11:38] LABS: BEDSIDE GLUCOSE 139 MG/DL (83-110)
[2018-04-11] MEDS: ESCITALOPRAM OXALATE 10 MG TAB (LEXAPRO) PO (13:22)
[2018-04-11 16:37] LABS: BEDSIDE GLUCOSE 80 MG/DL (83-110)
[2018-04-11] MEDS: FENOFIBRATE 145 MG TAB (TRICOR) PO (20:30)
[2018-04-11 20:52] LABS: BEDSIDE GLUCOSE 126 MG/DL (83-110)
[2018-04-12] MEDS: traMADol 50 MG TAB PO ×6 (01:53→21:02)
[2018-04-12 06:08] LABS: HEMATOCRIT 40.1 % (36.0-47.0); HEMOGLOBIN 12.4 g/dl (12.0-15.5); MEAN CORPUSCULAR HEMOGLOBIN 30.4 pg (27.0-33.0); MEAN CORPUSCULAR HGB CONC 30.9 g/dl (32.0-36.5); MEAN CORPUSCULAR VOLUME 98.3 fl (80.0-96.0); PLATELET COUNT, AUTOMATED 345 10^3/uL (150-450); RED BLOOD COUNT 4.08 10^6/uL (4.00-5.40); RED CELL DISTRIBUTION WIDTH 13.2 % (11.5-14.5); WHITE BLOOD COUNT 7.7 10^3/uL (4.0-10.0)
[2018-04-12 06:23] LABS: INR 4.81; PROTHROMBIN TIME 46.2 SECONDS (12.1-14.4)
[2018-04-12 06:28] LABS: ANION GAP 5 MEQ/L (8-16); BLOOD UREA NITROGEN 43 MG/DL (7-18); CALCIUM LEVEL 9.2 MG/DL (8.8-10.2); CARBON DIOXIDE LEVEL 34 MEQ/L (21-32); CHLORIDE LEVEL 101 MEQ/L (98-107); CREATININE FOR GFR 1.22 MG/DL (0.55-1.30); GLOMERULAR FILTRATION RATE 45.1 (>32); GLUCOSE, FASTING 101 MG/DL (70-100); POTASSIUM SERUM 3.9 MEQ/L (3.5-5.1); SODIUM LEVEL 140 MEQ/L (136-145)
[2018-04-12] MEDS: HumaLOG INSULIN (NovoLOG) PER UNIT SC ×4 (07:57→21:02)
[2018-04-12] MEDS ORDERED: LIDOCAINE 5% (LIDODERM) PATCH TD (09:00)
[2018-04-12] MEDS: DOCUSATE SODIUM 100 MG CAP PO ×2 (09:55→21:01)
[2018-04-12] MEDS: FLUCONAZOLE 100 MG TAB PO (09:55)
[2018-04-12] MEDS: GABAPENTIN 300 MG CAP PO ×3 (09:55→21:02)
[2018-04-12] MEDS: CALCITRIOL 0.25 MCG CAP (S0169) PO (09:55)
[2018-04-12] MEDS: FLUoxetine 20 MG CAP PO (09:55)
[2018-04-12] MEDS: ESCITALOPRAM OXALATE 10 MG TAB (LEXAPRO) PO (10:00)
[2018-04-12] MEDS: busPIRone 10 MG TAB PO ×2 (10:00→21:01)
[2018-04-12] MEDS: FUROSEMIDE 20 MG TAB PO (10:00)
[2018-04-12] MEDS: MIRALAX *UNIT DOSE* 17GM PACKET PO (10:00)
[2018-04-12] MEDS: LISINOPRIL 20 MG TAB PO (10:00)
[2018-04-12] MEDS: NYSTATIN 100,000 UNITS/GM TOPICAL PWD 15 GM TOP ×2 (10:01→21:03)
[2018-04-12 11:39] LABS: BEDSIDE GLUCOSE 110 MG/DL (83-110)
[2018-04-12] MEDS: DANTROLENE 25 MG CAP PO (14:29)
[2018-04-12 17:13] LABS: BEDSIDE GLUCOSE 127 MG/DL (83-110)
[2018-04-12 20:21] LABS: BEDSIDE GLUCOSE 132 MG/DL (83-110)
[2018-04-12] MEDS ORDERED: **NOTE PATIENT COMMENT** MISC XX (21:00)
[2018-04-12] MEDS: FENOFIBRATE 145 MG TAB (TRICOR) PO (21:02)
[2018-04-12] MEDS: TRIAMCINOLONE ACET 0.1% CREAM 80 GM TOP (21:03)
[2018-04-13] MEDS: traMADol 50 MG TAB PO ×6 (02:02→21:33)
[2018-04-13 06:30] LABS: HEMATOCRIT 42.1 % (36.0-47.0); HEMOGLOBIN 13.2 g/dl (12.0-15.5); MEAN CORPUSCULAR HEMOGLOBIN 30.6 pg (27.0-33.0); MEAN CORPUSCULAR HGB CONC 31.4 g/dl (32.0-36.5); MEAN CORPUSCULAR VOLUME 97.5 fl (80.0-96.0); PLATELET COUNT, AUTOMATED 344 10^3/uL (150-450); RED BLOOD COUNT 4.32 10^6/uL (4.00-5.40); WHITE BLOOD COUNT 7.8 10^3/uL (4.0-10.0)
[2018-04-13 06:45] LABS: PROTHROMBIN TIME 42.3 SECONDS (12.1-14.4)
[2018-04-13 06:52] LABS: ANION GAP 7 MEQ/L (8-16); BLOOD UREA NITROGEN 39 MG/DL (7-18); CALCIUM LEVEL 8.7 MG/DL (8.8-10.2); CARBON DIOXIDE LEVEL 32 MEQ/L (21-32); CHLORIDE LEVEL 102 MEQ/L (98-107); CREATININE FOR GFR 1.07 MG/DL (0.55-1.30); GLOMERULAR FILTRATION RATE 52.5 (>32); GLUCOSE, FASTING 114 MG/DL (70-100); POTASSIUM SERUM 3.9 MEQ/L (3.5-5.1); SODIUM LEVEL 141 MEQ/L (136-145)
[2018-04-13] MEDS: HumaLOG INSULIN (NovoLOG) PER UNIT SC ×4 (08:37→21:34)
[2018-04-13] MEDS: busPIRone 10 MG TAB PO (08:37)
[2018-04-13] MEDS: GABAPENTIN 300 MG CAP PO ×3 (08:37→21:33)
[2018-04-13] MEDS: FLUoxetine 20 MG CAP PO (08:37)
[2018-04-13] MEDS: ESCITALOPRAM OXALATE 10 MG TAB (LEXAPRO) PO (08:38)
[2018-04-13] MEDS: DANTROLENE 25 MG CAP PO (08:38)
[2018-04-13] MEDS: CALCITRIOL 0.25 MCG CAP (S0169) PO (08:38)
[2018-04-13] MEDS: FLUCONAZOLE 100 MG TAB PO (08:38)
[2018-04-13] MEDS: NYSTATIN 100,000 UNITS/GM TOPICAL PWD 15 GM TOP ×2 (08:41→21:34)
[2018-04-13] MEDS: LISINOPRIL 20 MG TAB PO (08:41)
[2018-04-13] MEDS: DOCUSATE SODIUM 100 MG CAP PO ×2 (08:42→21:33)
[2018-04-13] MEDS: MIRALAX *UNIT DOSE* 17GM PACKET PO (08:42)
[2018-04-13] MEDS: FUROSEMIDE 20 MG TAB PO (08:42)
[2018-04-13 11:42] LABS: BEDSIDE GLUCOSE 98 MG/DL (83-110)
[2018-04-13 16:56] LABS: BEDSIDE GLUCOSE 95 MG/DL (83-110)
[2018-04-13 19:53] LABS: BEDSIDE GLUCOSE 137 MG/DL (83-110)
[2018-04-13] MEDS: FENOFIBRATE 145 MG TAB (TRICOR) PO (21:33)
[2018-04-13] MEDS: TRIAMCINOLONE ACET 0.1% CREAM 80 GM TOP (21:35)
[2018-04-14] MEDS: traMADol 50 MG TAB PO ×3 (01:38→09:56)
[2018-04-14 05:56] LABS: HEMATOCRIT 41.9 % (36.0-47.0); MEAN CORPUSCULAR HEMOGLOBIN 30.7 pg (27.0-33.0); MEAN CORPUSCULAR VOLUME 98.8 fl (80.0-96.0); PLATELET COUNT, AUTOMATED 376 10^3/uL (150-450); RED BLOOD COUNT 4.24 10^6/uL (4.00-5.40); WHITE BLOOD COUNT 7.4 10^3/uL (4.0-10.0)
[2018-04-14 06:15] LABS: INR 3.92; PROTHROMBIN TIME 39.3 SECONDS (12.1-14.4)
[2018-04-14 06:19] LABS: ANION GAP 7 MEQ/L (8-16); BLOOD UREA NITROGEN 36 MG/DL (7-18); CALCIUM LEVEL 8.6 MG/DL (8.8-10.2); CARBON DIOXIDE LEVEL 34 MEQ/L (21-32); CHLORIDE LEVEL 101 MEQ/L (98-107); CREATININE FOR GFR 1.11 MG/DL (0.55-1.30); GLOMERULAR FILTRATION RATE 50.3 (>32); GLUCOSE, FASTING 106 MG/DL (70-100); POTASSIUM SERUM 3.6 MEQ/L (3.5-5.1); SODIUM LEVEL 142 MEQ/L (136-145)
[2018-04-14] MEDS: CALCITRIOL 0.25 MCG CAP (S0169) PO (07:49)
[2018-04-14] MEDS: GABAPENTIN 300 MG CAP PO ×3 (07:49→20:26)
[2018-04-14] MEDS: HumaLOG INSULIN (NovoLOG) PER UNIT SC ×4 (07:49→20:27)
[2018-04-14] MEDS: FLUCONAZOLE 100 MG TAB PO (07:50)
[2018-04-14] MEDS: DANTROLENE 25 MG CAP PO (07:50)
[2018-04-14] MEDS: ESCITALOPRAM OXALATE 10 MG TAB (LEXAPRO) PO (07:50)
[2018-04-14] MEDS: FUROSEMIDE 20 MG TAB PO (07:50)
[2018-04-14] MEDS: NYSTATIN 100,000 UNITS/GM TOPICAL PWD 15 GM TOP ×2 (07:54→20:28)
[2018-04-14] MEDS: LISINOPRIL 20 MG TAB PO (07:54)
[2018-04-14] MEDS: MIRALAX *UNIT DOSE* 17GM PACKET PO (09:00)
[2018-04-14] MEDS: DOCUSATE SODIUM 100 MG CAP PO ×2 (09:00→20:27)
[2018-04-14 11:47] LABS: BEDSIDE GLUCOSE 125 MG/DL (83-110)
[2018-04-14] MEDS ORDERED: PILL CRUSHER/CUTTER 1 EACH XX (13:00)
[2018-04-14 16:46] LABS: BEDSIDE GLUCOSE 92 MG/DL (83-110)
[2018-04-14 19:50] LABS: BEDSIDE GLUCOSE 118 MG/DL (83-110)
[2018-04-14] MEDS: FENOFIBRATE 145 MG TAB (TRICOR) PO (20:26)
[2018-04-14] MEDS: tiZANidine 4 MG TAB PO (20:27)
[2018-04-14] MEDS: TRIAMCINOLONE ACET 0.1% CREAM 80 GM TOP (20:28)
[2018-04-15 05:56] LABS: HEMATOCRIT 43.6 % (36.0-47.0); HEMOGLOBIN 13.5 g/dl (12.0-15.5); MEAN CORPUSCULAR HEMOGLOBIN 30.2 pg (27.0-33.0); MEAN CORPUSCULAR VOLUME 97.5 fl (80.0-96.0); PLATELET COUNT, AUTOMATED 385 10^3/uL (150-450); RED BLOOD COUNT 4.47 10^6/uL (4.00-5.40); RED CELL DISTRIBUTION WIDTH 12.9 % (11.5-14.5); WHITE BLOOD COUNT 9.4 10^3/uL (4.0-10.0)
[2018-04-15 06:07] LABS: INR 3.68; PROTHROMBIN TIME 37.4 SECONDS (12.1-14.4)
[2018-04-15 06:18] LABS: ANION GAP 6 MEQ/L (8-16); BLOOD UREA NITROGEN 48 MG/DL (7-18); CARBON DIOXIDE LEVEL 34 MEQ/L (21-32); CHLORIDE LEVEL 102 MEQ/L (98-107); CREATININE FOR GFR 1.22 MG/DL (0.55-1.30); GLOMERULAR FILTRATION RATE 45.1 (>32); GLUCOSE, FASTING 112 MG/DL (70-100); POTASSIUM SERUM 3.5 MEQ/L (3.5-5.1); SODIUM LEVEL 142 MEQ/L (136-145)
[2018-04-15] MEDS: HumaLOG INSULIN (NovoLOG) PER UNIT SC ×4 (08:17→21:03)
[2018-04-15] MEDS: CALCITRIOL 0.25 MCG CAP (S0169) PO (08:52)
[2018-04-15] MEDS: GABAPENTIN 300 MG CAP PO ×3 (08:52→21:09)
[2018-04-15] MEDS: tiZANidine 4 MG TAB PO ×2 (08:52→21:10)
[2018-04-15] MEDS: LISINOPRIL 20 MG TAB PO (08:52)
[2018-04-15] MEDS: DOCUSATE SODIUM 100 MG CAP PO ×2 (08:52→21:09)
[2018-04-15] MEDS: ESCITALOPRAM OXALATE 10 MG TAB (LEXAPRO) PO (08:52)
[2018-04-15] MEDS: FUROSEMIDE 20 MG TAB PO (08:52)
[2018-04-15] MEDS: MIRALAX *UNIT DOSE* 17GM PACKET PO (08:53)
[2018-04-15] MEDS: NYSTATIN 100,000 UNITS/GM TOPICAL PWD 15 GM TOP ×2 (08:53→21:10)
[2018-04-15] MEDS ORDERED: NS 1,000 ML IV (11:00)
[2018-04-15 11:47] LABS: BEDSIDE GLUCOSE 170 MG/DL (83-110)
[2018-04-15] MEDS: NS 500 ML IV (12:24)
[2018-04-15] MEDS: GASTROGRAFIN SOLUTION 30ML PO ×2 (12:24→12:25)
[2018-04-15] MEDS ORDERED: ISOVUE-370 76% 100ML VIAL (Q9967) As Ordered (13:56)
[2018-04-15 17:00] LABS: BEDSIDE GLUCOSE 124 MG/DL (83-110)
[2018-04-15 20:52] LABS: BEDSIDE GLUCOSE 92 MG/DL (83-110)
[2018-04-15] MEDS: FENOFIBRATE 145 MG TAB (TRICOR) PO (21:09)
[2018-04-15] MEDS: TRIAMCINOLONE ACET 0.1% CREAM 80 GM TOP (21:10)
[2018-04-16 06:07] LABS: HEMATOCRIT 41.4 % (36.0-47.0); HEMOGLOBIN 12.8 g/dl (12.0-15.5); MEAN CORPUSCULAR HGB CONC 30.9 g/dl (32.0-36.5); MEAN CORPUSCULAR VOLUME 97.2 fl (80.0-96.0); PLATELET COUNT, AUTOMATED 364 10^3/uL (150-450); RED BLOOD COUNT 4.26 10^6/uL (4.00-5.40); RED CELL DISTRIBUTION WIDTH 13.2 % (11.5-14.5); WHITE BLOOD COUNT 9.5 10^3/uL (4.0-10.0)
[2018-04-16 06:17] LABS: INR 4.07; PROTHROMBIN TIME 40.5 SECONDS (12.1-14.4)
[2018-04-16 06:27] LABS: ANION GAP 7 MEQ/L (8-16); BLOOD UREA NITROGEN 53 MG/DL (7-18); CALCIUM LEVEL 8.7 MG/DL (8.8-10.2); CARBON DIOXIDE LEVEL 32 MEQ/L (21-32); CHLORIDE LEVEL 100 MEQ/L (98-107); CREATININE FOR GFR 1.49 MG/DL (0.55-1.30); GLOMERULAR FILTRATION RATE 35.8 (>32); GLUCOSE, FASTING 100 MG/DL (70-100); POTASSIUM SERUM 3.6 MEQ/L (3.5-5.1); SODIUM LEVEL 139 MEQ/L (136-145)
[2018-04-16] MEDS: HumaLOG INSULIN (NovoLOG) PER UNIT SC ×4 (07:30→20:32)
[2018-04-16] MEDS: CALCITRIOL 0.25 MCG CAP (S0169) PO (08:50)
[2018-04-16] MEDS: tiZANidine 4 MG TAB PO ×2 (08:51→20:31)
[2018-04-16] MEDS: DOCUSATE SODIUM 100 MG CAP PO ×2 (08:51→20:30)
[2018-04-16] MEDS: ESCITALOPRAM OXALATE 10 MG TAB (LEXAPRO) PO (08:51)
[2018-04-16] MEDS: FUROSEMIDE 20 MG TAB PO (08:51)
[2018-04-16] MEDS: GABAPENTIN 300 MG CAP PO ×3 (08:51→20:30)
[2018-04-16] MEDS: LISINOPRIL 20 MG TAB PO (08:56)
[2018-04-16] MEDS: MIRALAX *UNIT DOSE* 17GM PACKET PO ×2 (08:56→20:30)
[2018-04-16] MEDS: NYSTATIN 100,000 UNITS/GM TOPICAL PWD 15 GM TOP ×2 (08:57→20:31)
[2018-04-16] MEDS: FLEET OIL RETENTION ENEMA PR (10:24)
[2018-04-16] MEDS: methylPREDNISolone INJ 40 MG/1 ML VIAL (J2920) IV (10:51)
[2018-04-16] MEDS: NS 500 ML IV (10:52)
[2018-04-16 11:32] LABS: BEDSIDE GLUCOSE 104 MG/DL (83-110)
[2018-04-16 16:42] LABS: BEDSIDE GLUCOSE 119 MG/DL (83-110)
[2018-04-16 20:25] LABS: BEDSIDE GLUCOSE 149 MG/DL (83-110)
[2018-04-16] MEDS: FENOFIBRATE 145 MG TAB (TRICOR) PO (20:30)
[2018-04-16] MEDS: TRIAMCINOLONE ACET 0.1% CREAM 80 GM TOP (20:31)
[2018-04-17] MEDS: traMADol 50 MG TAB PO ×2 (03:27→17:02)
[2018-04-17 06:15] LABS: HEMATOCRIT 41.9 % (36.0-47.0); HEMOGLOBIN 13.2 g/dl (12.0-15.5); MEAN CORPUSCULAR HEMOGLOBIN 30.4 pg (27.0-33.0); MEAN CORPUSCULAR HGB CONC 31.5 g/dl (32.0-36.5); MEAN CORPUSCULAR VOLUME 96.5 fl (80.0-96.0); PLATELET COUNT, AUTOMATED 396 10^3/uL (150-450); RED BLOOD COUNT 4.34 10^6/uL (4.00-5.40); RED CELL DISTRIBUTION WIDTH 13.1 % (11.5-14.5); WHITE BLOOD COUNT 9.1 10^3/uL (4.0-10.0)
[2018-04-17 06:25] LABS: INR 3.79; PROTHROMBIN TIME 38.3 SECONDS (12.1-14.4)
[2018-04-17 06:38] LABS: ANION GAP 7 MEQ/L (8-16); BLOOD UREA NITROGEN 56 MG/DL (7-18); CALCIUM LEVEL 8.6 MG/DL (8.8-10.2); CARBON DIOXIDE LEVEL 31 MEQ/L (21-32); CHLORIDE LEVEL 102 MEQ/L (98-107); GLUCOSE, FASTING 103 MG/DL (70-100); POTASSIUM SERUM 3.8 MEQ/L (3.5-5.1); SODIUM LEVEL 140 MEQ/L (136-145)
[2018-04-17] MEDS: HumaLOG INSULIN (NovoLOG) PER UNIT SC ×4 (07:30→21:00)
[2018-04-17] MEDS: ESCITALOPRAM OXALATE 10 MG TAB (LEXAPRO) PO (08:22)
[2018-04-17] MEDS: tiZANidine 4 MG TAB PO ×2 (08:22→21:26)
[2018-04-17] MEDS: DOCUSATE SODIUM 100 MG CAP PO ×2 (08:22→21:26)
[2018-04-17] MEDS: FUROSEMIDE 20 MG TAB PO (08:22)
[2018-04-17] MEDS: CALCITRIOL 0.25 MCG CAP (S0169) PO (08:22)
[2018-04-17] MEDS: GABAPENTIN 300 MG CAP PO ×3 (08:22→21:26)
[2018-04-17] MEDS: LISINOPRIL 20 MG TAB PO (08:23)
[2018-04-17] MEDS: MIRALAX *UNIT DOSE* 17GM PACKET PO ×2 (08:23→21:27)
[2018-04-17] MEDS: FLUOCINONIDE 0.05% OINT 15 GM TOP ×2 (08:23→21:26)
[2018-04-17] MEDS: NYSTATIN 100,000 UNITS/GM TOPICAL PWD 15 GM TOP ×2 (08:24→21:26)
[2018-04-17] MEDS: FLEET OIL RETENTION ENEMA PR (08:29)
[2018-04-17 12:00] LABS: BEDSIDE GLUCOSE 112 MG/DL (83-110)
[2018-04-17 16:48] LABS: BEDSIDE GLUCOSE 117 MG/DL (83-110)
[2018-04-17 20:53] LABS: BEDSIDE GLUCOSE 161 MG/DL (83-110)
[2018-04-17] MEDS: FENOFIBRATE 145 MG TAB (TRICOR) PO (21:27)
[2018-04-17] MEDS: BETAMETHASONE DIP 0.05% OINT 15 GM TOP (21:27)
[2018-04-18 06:31] LABS: MEAN CORPUSCULAR HEMOGLOBIN 30.7 pg (27.0-33.0); MEAN CORPUSCULAR HGB CONC 31.7 g/dl (32.0-36.5); MEAN CORPUSCULAR VOLUME 96.9 fl (80.0-96.0); PLATELET COUNT, AUTOMATED 385 10^3/uL (150-450); RED BLOOD COUNT 4.23 10^6/uL (4.00-5.40); RED CELL DISTRIBUTION WIDTH 13.3 % (11.5-14.5); WHITE BLOOD COUNT 9.3 10^3/uL (4.0-10.0)
[2018-04-18 06:43] LABS: ALBUMIN 2.6 GM/DL (3.2-5.2); ALBUMIN/GLOBULIN RATIO 0.72 (1.00-1.93); ALKALINE PHOSPHATASE 115 U/L (45-117); ALT/SGPT 24 U/L (12-78); ANION GAP 6 MEQ/L (8-16); AST/SGOT 33 U/L (7-37); BILIRUBIN,TOTAL 0.7 MG/DL (0.2-1.0); BLOOD UREA NITROGEN 64 MG/DL (7-18); CALCIUM LEVEL 8.5 MG/DL (8.8-10.2); CARBON DIOXIDE LEVEL 33 MEQ/L (21-32); CHLORIDE LEVEL 98 MEQ/L (98-107); CREATININE FOR GFR 1.46 MG/DL (0.55-1.30); GLOMERULAR FILTRATION RATE 36.7 (>32); GLUCOSE, FASTING 115 MG/DL (70-100); SODIUM LEVEL 137 MEQ/L (136-145); TOTAL PROTEIN 6.2 GM/DL (6.4-8.2)
[2018-04-18 06:44] LABS: INR 3.32; PROTHROMBIN TIME 34.4 SECONDS (12.1-14.4)
[2018-04-18] MEDS: HumaLOG INSULIN (NovoLOG) PER UNIT SC ×4 (07:30→21:00)
[2018-04-18] MEDS: CALCITRIOL 0.25 MCG CAP (S0169) PO (10:01)
[2018-04-18] MEDS: MIRALAX *UNIT DOSE* 17GM PACKET PO ×4 (10:01→23:21)
[2018-04-18] MEDS: MAGNESIUM CITRATE 300 ML BTL PO (10:01)
[2018-04-18] MEDS: GABAPENTIN 300 MG CAP PO ×3 (10:02→21:22)
[2018-04-18] MEDS: tiZANidine 4 MG TAB PO ×2 (10:02→21:22)
[2018-04-18] MEDS: ESCITALOPRAM OXALATE 10 MG TAB (LEXAPRO) PO (10:02)
[2018-04-18] MEDS: FUROSEMIDE 20 MG TAB PO (10:02)
[2018-04-18] MEDS: LISINOPRIL 20 MG TAB PO (10:02)
[2018-04-18] MEDS: DOCUSATE SODIUM 100 MG CAP PO ×2 (10:02→21:21)
[2018-04-18] MEDS: FLEET OIL RETENTION ENEMA PR (10:03)
[2018-04-18] MEDS: BETAMETHASONE DIP 0.05% OINT 15 GM TOP ×2 (10:03→21:23)
[2018-04-18] MEDS: NYSTATIN 100,000 UNITS/GM TOPICAL PWD 15 GM TOP ×2 (10:04→21:24)
[2018-04-18] MEDS: FLUOCINONIDE 0.05% OINT 15 GM TOP ×2 (10:04→21:24)
[2018-04-18 11:47] LABS: BEDSIDE GLUCOSE 119 MG/DL (83-110)
[2018-04-18] MEDS: NS 500 ML IV (13:14)
[2018-04-18 16:40] LABS: BEDSIDE GLUCOSE 122 MG/DL (83-110)
[2018-04-18] MEDS: WARFARIN SOD 4 MG TAB PO (17:00)
[2018-04-18] MEDS: FENOFIBRATE 145 MG TAB (TRICOR) PO (21:22)
[2018-04-19 01:49] LABS: BEDSIDE GLUCOSE 120 MG/DL (83-110)
[2018-04-19 06:02] LABS: INR 4.06; PROTHROMBIN TIME 40.5 SECONDS (12.1-14.4)
[2018-04-19 06:12] LABS: ANION GAP 5 MEQ/L (8-16); BLOOD UREA NITROGEN 72 MG/DL (7-18); CALCIUM LEVEL 8.2 MG/DL (8.8-10.2); CARBON DIOXIDE LEVEL 34 MEQ/L (21-32); CHLORIDE LEVEL 100 MEQ/L (98-107); CREATININE FOR GFR 1.58 MG/DL (0.55-1.30); GLOMERULAR FILTRATION RATE 33.5 (>32); GLUCOSE, FASTING 120 MG/DL (70-100); POTASSIUM SERUM 4.3 MEQ/L (3.5-5.1); SODIUM LEVEL 139 MEQ/L (136-145)
[2018-04-19] MEDS: HumaLOG INSULIN (NovoLOG) PER UNIT SC ×4 (07:30→21:00)
[2018-04-19] MEDS: CALCITRIOL 0.25 MCG CAP (S0169) PO (08:06)
[2018-04-19] MEDS: NYSTATIN 100,000 UNITS/GM TOPICAL PWD 15 GM TOP ×2 (08:07→21:37)
[2018-04-19] MEDS: ESCITALOPRAM OXALATE 10 MG TAB (LEXAPRO) PO (08:07)
[2018-04-19] MEDS: GABAPENTIN 300 MG CAP PO ×3 (08:07→21:36)
[2018-04-19] MEDS: tiZANidine 4 MG TAB PO ×2 (08:07→21:38)
[2018-04-19] MEDS: DOCUSATE SODIUM 100 MG CAP PO ×2 (08:07→21:36)
[2018-04-19] MEDS: amLODIPine 10 MG TAB PO (08:07)
[2018-04-19] MEDS: FLUOCINONIDE 0.05% OINT 15 GM TOP (08:08)
[2018-04-19] MEDS: BETAMETHASONE DIP 0.05% OINT 15 GM TOP (08:08)
[2018-04-19] MEDS: MIRALAX *UNIT DOSE* 17GM PACKET PO (08:08)
[2018-04-19] MEDS: FLEET OIL RETENTION ENEMA PR (08:08)
[2018-04-19] MEDS: HALOPERIDOL 1 MG TAB PO ×2 (11:03→21:36)
[2018-04-19] MEDS: NS 1,000 ML IV (11:03)
[2018-04-19 12:29] LABS: BEDSIDE GLUCOSE 156 MG/DL (83-110)
[2018-04-19] MEDS: KETOCONAZOLE 2% CREAM TOP ×2 (15:19→21:37)
[2018-04-19] MEDS: HYDROCORTISONE 2.5% 20GM OINTMENT TOP ×2 (15:19→21:37)
[2018-04-19 16:55] LABS: BEDSIDE GLUCOSE 161 MG/DL (83-110)
[2018-04-19 21:10] LABS: BEDSIDE GLUCOSE 149 MG/DL (83-110)
[2018-04-19] MEDS: FENOFIBRATE 145 MG TAB (TRICOR) PO (21:36)
[2018-04-20 06:37] LABS: INR 2.75; PROTHROMBIN TIME 29.7 SECONDS (12.1-14.4)
[2018-04-20 06:38] LABS: ANION GAP 6 MEQ/L (8-16); BLOOD UREA NITROGEN 75 MG/DL (7-18); CALCIUM LEVEL 7.7 MG/DL (8.8-10.2); CARBON DIOXIDE LEVEL 31 MEQ/L (21-32); CHLORIDE LEVEL 99 MEQ/L (98-107); CREATININE FOR GFR 1.41 MG/DL (0.55-1.30); GLOMERULAR FILTRATION RATE 38.2 (>32); GLUCOSE, FASTING 99 MG/DL (70-100); POTASSIUM SERUM 3.8 MEQ/L (3.5-5.1); SODIUM LEVEL 136 MEQ/L (136-145)
[2018-04-20] MEDS: HumaLOG INSULIN (NovoLOG) PER UNIT SC ×4 (07:28→21:00)
[2018-04-20] MEDS: DOCUSATE SODIUM 100 MG CAP PO ×3 (07:29→21:41)
[2018-04-20] MEDS: CALCITRIOL 0.25 MCG CAP (S0169) PO (08:35)
[2018-04-20] MEDS: GABAPENTIN 300 MG CAP PO ×3 (08:36→21:41)
[2018-04-20] MEDS: ESCITALOPRAM OXALATE 10 MG TAB (LEXAPRO) PO (08:36)
[2018-04-20] MEDS: tiZANidine 4 MG TAB PO ×2 (08:36→21:41)
[2018-04-20] MEDS: amLODIPine 10 MG TAB PO (08:36)
[2018-04-20] MEDS: HALOPERIDOL 1 MG TAB PO ×2 (08:36→21:41)
[2018-04-20] MEDS: KETOCONAZOLE 2% CREAM TOP ×2 (08:37→21:42)
[2018-04-20] MEDS: HYDROCORTISONE 2.5% 20GM OINTMENT TOP (09:57)
[2018-04-20 10:10] LABS: CPK CREATINE PHOSPHOKINASE 110 U/L (26-192)
[2018-04-20 11:46] LABS: BEDSIDE GLUCOSE 169 MG/DL (83-110)
[2018-04-20 16:33] LABS: BEDSIDE GLUCOSE 116 MG/DL (83-110)
[2018-04-20] MEDS: WARFARIN SOD 2.5 MG TAB PO (17:07)
[2018-04-20 19:46] LABS: BEDSIDE GLUCOSE 223 MG/DL (83-110)
[2018-04-20] MEDS: FENOFIBRATE 145 MG TAB (TRICOR) PO (21:41)
[2018-04-20] MEDS: ANUSOL HC CREAM 30GM TOP (21:42)
[2018-04-21 05:54] LABS: HEMATOCRIT 35.5 % (36.0-47.0); HEMOGLOBIN 11.5 g/dl (12.0-15.5); MEAN CORPUSCULAR HEMOGLOBIN 30.7 pg (27.0-33.0); MEAN CORPUSCULAR HGB CONC 32.4 g/dl (32.0-36.5); MEAN CORPUSCULAR VOLUME 94.7 fl (80.0-96.0); PLATELET COUNT, AUTOMATED 250 10^3/uL (150-450); RED BLOOD COUNT 3.75 10^6/uL (4.00-5.40); RED CELL DISTRIBUTION WIDTH 13.2 % (11.5-14.5); WHITE BLOOD COUNT 8.3 10^3/uL (4.0-10.0)
[2018-04-21 06:10] LABS: PROTHROMBIN TIME 26.6 SECONDS (12.1-14.4)
[2018-04-21 06:22] LABS: ANION GAP 5 MEQ/L (8-16); BLOOD UREA NITROGEN 77 MG/DL (7-18); CALCIUM LEVEL 7.8 MG/DL (8.8-10.2); CARBON DIOXIDE LEVEL 30 MEQ/L (21-32); CHLORIDE LEVEL 100 MEQ/L (98-107); CREATININE FOR GFR 1.43 MG/DL (0.55-1.30); GLOMERULAR FILTRATION RATE 37.6 (>32); GLUCOSE, FASTING 106 MG/DL (70-100); POTASSIUM SERUM 4.6 MEQ/L (3.5-5.1); SODIUM LEVEL 135 MEQ/L (136-145)
[2018-04-21] MEDS: HumaLOG INSULIN (NovoLOG) PER UNIT SC ×5 (07:33→21:00)
[2018-04-21] MEDS: GABAPENTIN 300 MG CAP PO ×3 (07:51→21:52)
[2018-04-21] MEDS: ESCITALOPRAM OXALATE 10 MG TAB (LEXAPRO) PO (07:51)
[2018-04-21] MEDS: HALOPERIDOL 1 MG TAB PO ×2 (07:51→21:52)
[2018-04-21] MEDS: tiZANidine 4 MG TAB PO (07:51)
[2018-04-21] MEDS: CALCITRIOL 0.25 MCG CAP (S0169) PO (07:51)
[2018-04-21] MEDS: amLODIPine 10 MG TAB PO (07:51)
[2018-04-21] MEDS: KETOCONAZOLE 2% CREAM TOP ×2 (07:52→21:53)
[2018-04-21] MEDS: DOCUSATE SODIUM 100 MG CAP PO ×2 (07:52→21:00)
[2018-04-21] MEDS: ANUSOL HC CREAM 30GM TOP ×2 (10:25→21:54)
[2018-04-21 11:43] LABS: BEDSIDE GLUCOSE 184 MG/DL (83-110)
[2018-04-21] MEDS: ACETAMINOPHEN 500 MG TAB PO (11:44)
[2018-04-21 11:58] LABS: BEDSIDE GLUCOSE 82 MG/DL (83-110)
[2018-04-21 17:08] LABS: BEDSIDE GLUCOSE 152 MG/DL (83-110)
[2018-04-21] MEDS: WARFARIN SOD 2.5 MG TAB PO (17:23)
[2018-04-21] MEDS: FENOFIBRATE 145 MG TAB (TRICOR) PO (21:52)
[2018-04-22 04:01] LABS: BEDSIDE GLUCOSE 136 MG/DL (83-110)
[2018-04-22 05:58] LABS: HEMATOCRIT 38.5 % (36.0-47.0); HEMOGLOBIN 12.4 g/dl (12.0-15.5); MEAN CORPUSCULAR HEMOGLOBIN 30.5 pg (27.0-33.0); MEAN CORPUSCULAR HGB CONC 32.2 g/dl (32.0-36.5); MEAN CORPUSCULAR VOLUME 94.6 fl (80.0-96.0); PLATELET COUNT, AUTOMATED 255 10^3/uL (150-450); RED BLOOD COUNT 4.07 10^6/uL (4.00-5.40); RED CELL DISTRIBUTION WIDTH 13.2 % (11.5-14.5); WHITE BLOOD COUNT 7.3 10^3/uL (4.0-10.0)
[2018-04-22 06:22] LABS: INR 2.91
[2018-04-22 06:28] LABS: ANION GAP 7 MEQ/L (8-16); BLOOD UREA NITROGEN 86 MG/DL (7-18); CALCIUM LEVEL 7.9 MG/DL (8.8-10.2); CARBON DIOXIDE LEVEL 28 MEQ/L (21-32); CHLORIDE LEVEL 101 MEQ/L (98-107); CREATININE FOR GFR 1.64 MG/DL (0.55-1.30); GLOMERULAR FILTRATION RATE 32.1 (>32); GLUCOSE, FASTING 104 MG/DL (70-100); POTASSIUM SERUM 4.3 MEQ/L (3.5-5.1); SODIUM LEVEL 136 MEQ/L (136-145)
[2018-04-22] MEDS: KETOCONAZOLE 2% CREAM TOP ×2 (09:00→22:12)
[2018-04-22] MEDS: amLODIPine 10 MG TAB PO (09:46)
[2018-04-22] MEDS: DOCUSATE SODIUM 100 MG CAP PO ×2 (09:46→21:00)
[2018-04-22] MEDS: CALCITRIOL 0.25 MCG CAP (S0169) PO (09:46)
[2018-04-22] MEDS: HALOPERIDOL 1 MG TAB PO ×2 (09:46→22:10)
[2018-04-22] MEDS: HumaLOG INSULIN (NovoLOG) PER UNIT SC ×4 (09:47→21:00)
[2018-04-22] MEDS: ESCITALOPRAM OXALATE 10 MG TAB (LEXAPRO) PO (09:47)
[2018-04-22] MEDS: ANUSOL HC CREAM 30GM TOP (09:47)
[2018-04-22] MEDS: GABAPENTIN 300 MG CAP PO ×3 (09:47→22:10)
[2018-04-22] MEDS: NS 1,000 ML IV (10:53)
[2018-04-22 11:19] LABS: BEDSIDE GLUCOSE 133 MG/DL (83-110)
[2018-04-22] MEDS: WARFARIN SOD 2 MG TAB PO (16:30)
[2018-04-22 16:56] LABS: BEDSIDE GLUCOSE 118 MG/DL (83-110)
[2018-04-22 21:17] LABS: BEDSIDE GLUCOSE 87 MG/DL (83-110)
[2018-04-22] MEDS: FENOFIBRATE 145 MG TAB (TRICOR) PO (22:10)
[2018-04-23] MEDS: HYDROCORTISONE 2.5% 20GM OINTMENT TOP ×3 (00:48→22:18)
[2018-04-23 05:48] LABS: HEMOGLOBIN 11.9 g/dl (12.0-15.5); MEAN CORPUSCULAR HEMOGLOBIN 30.7 pg (27.0-33.0); MEAN CORPUSCULAR HGB CONC 32.2 g/dl (32.0-36.5); MEAN CORPUSCULAR VOLUME 95.6 fl (80.0-96.0); PLATELET COUNT, AUTOMATED 242 10^3/uL (150-450); RED BLOOD COUNT 3.87 10^6/uL (4.00-5.40); RED CELL DISTRIBUTION WIDTH 13.4 % (11.5-14.5); WHITE BLOOD COUNT 5.2 10^3/uL (4.0-10.0)
[2018-04-23 05:58] LABS: INR 3.94; PROTHROMBIN TIME 39.5 SECONDS (12.1-14.4)
[2018-04-23 06:11] LABS: ANION GAP 6 MEQ/L (8-16); BLOOD UREA NITROGEN 80 MG/DL (7-18); CALCIUM LEVEL 8.1 MG/DL (8.8-10.2); CARBON DIOXIDE LEVEL 28 MEQ/L (21-32); CHLORIDE LEVEL 103 MEQ/L (98-107); CREATININE FOR GFR 1.27 MG/DL (0.55-1.30); GLOMERULAR FILTRATION RATE 43.1 (>32); GLUCOSE, FASTING 101 MG/DL (70-100); POTASSIUM SERUM 4.4 MEQ/L (3.5-5.1); SODIUM LEVEL 137 MEQ/L (136-145)
[2018-04-23] MEDS: HumaLOG INSULIN (NovoLOG) PER UNIT SC ×4 (07:30→20:59)
[2018-04-23] MEDS: amLODIPine 10 MG TAB PO (09:00)
[2018-04-23] MEDS: CALCITRIOL 0.25 MCG CAP (S0169) PO (11:00)
[2018-04-23] MEDS: GABAPENTIN 300 MG CAP PO ×3 (11:00→21:19)
[2018-04-23] MEDS: DOCUSATE SODIUM 100 MG CAP PO ×2 (11:00→21:19)
[2018-04-23] MEDS: ESCITALOPRAM OXALATE 10 MG TAB (LEXAPRO) PO (11:00)
[2018-04-23] MEDS: HALOPERIDOL 1 MG TAB PO (11:05)
[2018-04-23] MEDS: KETOCONAZOLE 2% CREAM TOP ×2 (11:11→21:34)
[2018-04-23 11:20] LABS: BEDSIDE GLUCOSE 94 MG/DL (83-110)
[2018-04-23] MEDS: NS 1,000 ML IV (11:20)
[2018-04-23] MEDS: POLYSPORIN TOPICAL OINTMENT 15GM TOP ×2 (13:31→21:33)
[2018-04-23 16:43] LABS: BEDSIDE GLUCOSE 159 MG/DL (83-110)
[2018-04-23 20:07] LABS: BEDSIDE GLUCOSE 148 MG/DL (83-110)
[2018-04-23] MEDS: FENOFIBRATE 145 MG TAB (TRICOR) PO (21:19)
[2018-04-24 06:16] LABS: HEMATOCRIT 36.9 % (36.0-47.0); HEMOGLOBIN 11.9 g/dl (12.0-15.5); MEAN CORPUSCULAR HEMOGLOBIN 30.5 pg (27.0-33.0); MEAN CORPUSCULAR HGB CONC 32.2 g/dl (32.0-36.5); MEAN CORPUSCULAR VOLUME 94.6 fl (80.0-96.0); PLATELET COUNT, AUTOMATED 248 10^3/uL (150-450); RED CELL DISTRIBUTION WIDTH 13.3 % (11.5-14.5); WHITE BLOOD COUNT 3.3 10^3/uL (4.0-10.0)
[2018-04-24 06:33] LABS: INR 3.36; PROTHROMBIN TIME 34.8 SECONDS (12.1-14.4)
[2018-04-24 06:38] LABS: ANION GAP 5 MEQ/L (8-16); BLOOD UREA NITROGEN 69 MG/DL (7-18); CALCIUM LEVEL 8.3 MG/DL (8.8-10.2); CARBON DIOXIDE LEVEL 29 MEQ/L (21-32); CHLORIDE LEVEL 101 MEQ/L (98-107); CREATININE FOR GFR 1.04 MG/DL (0.55-1.30); GLOMERULAR FILTRATION RATE 54.3 (>32); GLUCOSE, FASTING 99 MG/DL (70-100); POTASSIUM SERUM 4.7 MEQ/L (3.5-5.1); SODIUM LEVEL 135 MEQ/L (136-145)
[2018-04-24] MEDS: HumaLOG INSULIN (NovoLOG) PER UNIT SC ×4 (07:30→21:00)
[2018-04-24] MEDS: CALCITRIOL 0.25 MCG CAP (S0169) PO (08:30)
[2018-04-24] MEDS: ESCITALOPRAM OXALATE 10 MG TAB (LEXAPRO) PO (08:30)
[2018-04-24] MEDS: amLODIPine 10 MG TAB PO ×2 (08:31→08:33)
[2018-04-24] MEDS: NORCO, ANEXSIA 5/325MG TABLET (HYDROcodone/ACETAMINOPHEN) PO ×2 (08:31→21:28)
[2018-04-24] MEDS: GABAPENTIN 300 MG CAP PO ×3 (08:31→21:28)
[2018-04-24] MEDS: HALOPERIDOL 0.5 MG TAB PO ×2 (08:31→21:28)
[2018-04-24] MEDS: DOCUSATE SODIUM 100 MG CAP PO ×2 (08:31→21:28)
[2018-04-24] MEDS: KETOCONAZOLE 2% CREAM TOP ×2 (08:32→22:34)
[2018-04-24] MEDS: POLYSPORIN TOPICAL OINTMENT 15GM TOP ×2 (08:32→21:28)
[2018-04-24] MEDS: HYDROCORTISONE 2.5% 20GM OINTMENT TOP ×2 (08:32→22:55)
[2018-04-24] MEDS: SENOKOT S TAB PO ×2 (09:00→21:28)
[2018-04-24] MEDS ORDERED: MIRALAX *UNIT DOSE* 17GM PACKET PO (09:45)
[2018-04-24] MEDS ORDERED: MOM 30ML SUSPENSION UDC PO (09:45)
[2018-04-24] MEDS: MOM 30ML SUSPENSION UDC PO (09:45)
[2018-04-24] MEDS: FLEET OIL RETENTION ENEMA PR (10:00)
[2018-04-24 11:36] LABS: BEDSIDE GLUCOSE 109 MG/DL (83-110)
[2018-04-24] MEDS: WARFARIN SOD 2 MG TAB PO (17:00)
[2018-04-24 17:21] LABS: BEDSIDE GLUCOSE 124 MG/DL (83-110)
[2018-04-24 19:48] LABS: BEDSIDE GLUCOSE 210 MG/DL (83-110)
[2018-04-24] MEDS: FENOFIBRATE 145 MG TAB (TRICOR) PO (21:28)
[2018-04-25 06:08] LABS: HEMATOCRIT 38.6 % (36.0-47.0); HEMOGLOBIN 12.5 g/dl (12.0-15.5); MEAN CORPUSCULAR HEMOGLOBIN 30.3 pg (27.0-33.0); MEAN CORPUSCULAR HGB CONC 32.4 g/dl (32.0-36.5); MEAN CORPUSCULAR VOLUME 93.7 fl (80.0-96.0); PLATELET COUNT, AUTOMATED 228 10^3/uL (150-450); RED BLOOD COUNT 4.12 10^6/uL (4.00-5.40); RED CELL DISTRIBUTION WIDTH 13.2 % (11.5-14.5); WHITE BLOOD COUNT 3.5 10^3/uL (4.0-10.0)
[2018-04-25 06:25] LABS: INR 3.04; PROTHROMBIN TIME 32.2 SECONDS (12.1-14.4)
[2018-04-25 06:36] LABS: ANION GAP 8 MEQ/L (8-16); BLOOD UREA NITROGEN 70 MG/DL (7-18); CARBON DIOXIDE LEVEL 25 MEQ/L (21-32); CHLORIDE LEVEL 100 MEQ/L (98-107); CREATININE FOR GFR 1.22 MG/DL (0.55-1.30); GLOMERULAR FILTRATION RATE 45.1 (>32); GLUCOSE, FASTING 107 MG/DL (70-100); POTASSIUM SERUM 4.8 MEQ/L (3.5-5.1); SODIUM LEVEL 133 MEQ/L (136-145)
[2018-04-25] MEDS: HumaLOG INSULIN (NovoLOG) PER UNIT SC (08:51)
[2018-04-25] MEDS: SENOKOT S TAB PO (09:00)
[2018-04-25] MEDS: amLODIPine 10 MG TAB PO (09:00)
[2018-04-25] MEDS: DOCUSATE SODIUM 100 MG CAP PO (09:00)
[2018-04-25] MEDS: ESCITALOPRAM OXALATE 10 MG TAB (LEXAPRO) PO (09:43)
[2018-04-25] MEDS: FLUCONAZOLE 50MG TABLET PO (09:43)
[2018-04-25] MEDS: HALOPERIDOL 0.5 MG TAB PO (09:43)
[2018-04-25] MEDS: GABAPENTIN 300 MG CAP PO (09:43)
[2018-04-25] MEDS: KETOCONAZOLE 2% CREAM TOP (09:44)
[2018-04-25] MEDS: POLYSPORIN TOPICAL OINTMENT 15GM TOP (09:44)
[2018-04-25] MEDS: CALCITRIOL 0.25 MCG CAP (S0169) PO (09:44)
[2018-04-25] MEDS: HYDROCORTISONE 2.5% 20GM OINTMENT TOP (09:45)
[2018-04-25 11:32] LABS: BEDSIDE GLUCOSE 133 MG/DL (83-110)
== END 2018-04-25 13:40 | DRG 690 ==
LOC: M ED 01:19 → M ED INP 10:43 → M MSPAV 12:13
DX: N39.0 Urinary tract infection, site not specified (principal); R44.0 Auditory hallucinations; F03.91 Unspecified dementia, unspecified severity, with behavioral disturbance; N17.9 Acute kidney failure, unspecified; M51.36 Other intervertebral disc degeneration, lumbar region; M50.30 Other cervical disc degeneration, unspecified cervical region; R44.1 Visual hallucinations; R41.0 Disorientation, unspecified; R53.81 Other malaise; N18.3 Chronic kidney disease, stage 3 (moderate); T40.4X5A Adverse effect of other synthetic narcotics, initial encounter; Q82.8 Other specified congenital malformations of skin; B37.2 Candidiasis of skin and nail; M48.061 Spinal stenosis, lumbar region without neurogenic claudication; B96.20 Unspecified Escherichia coli [E. coli] as the cause of diseases classified elsewhere; M47.816 Spondylosis without myelopathy or radiculopathy, lumbar region; M43.17 Spondylolisthesis, lumbosacral region; I87.2 Venous insufficiency (chronic) (peripheral); M47.812 Spondylosis without myelopathy or radiculopathy, cervical region; M48.02 Spinal stenosis, cervical region; I12.9 Hypertensive chronic kidney disease with stage 1 through stage 4 chronic kidney disease, or unspecified chronic kidney disease; F32.9 Major depressive disorder, single episode, unspecified; F41.9 Anxiety disorder, unspecified; K56.41 Fecal impaction; E11.22 Type 2 diabetes mellitus with diabetic chronic kidney disease; I48.91 Unspecified atrial fibrillation; E78.5 Hyperlipidemia, unspecified; Z79.01 Long term (current) use of anticoagulants; Z79.899 Other long term (current) drug therapy; Z88.6 Allergy status to analgesic agent; Z88.5 Allergy status to narcotic agent; Z88.0 Allergy status to penicillin; Z88.8 Allergy status to other drugs, medicaments and biological substances

== ENCOUNTER → 2018-04-17 | Outpatient (REF) | payer MEDICARE, MEDICAID | LOC: M LAB REF 04-22 12:35 → M SFHCPLAZ 12:39 | DX: L12.9 Pemphigoid, unspecified (principal) | CPT/HCPCS: 88300 ==

== ENCOUNTER → 2018-04-26 | Outpatient (REF) ==
[2018-04-26 13:16] LABS: INR 3.54; PROTHROMBIN TIME 36.3 SECONDS (12.1-14.4)
== END ==
LOC: SKLAB2 08:00
DX: Z51.81 Encounter for therapeutic drug level monitoring (principal); Z79.01 Long term (current) use of anticoagulants

== ENCOUNTER → 2018-04-29 | Outpatient (REF) ==
[2018-04-29 09:48] LABS: INR 4.19; PROTHROMBIN TIME 41.5 SECONDS (12.1-14.4)
[2018-04-29 11:55] LABS: TOTAL 25(OH) VITAMIN D 29.7 NG/ML (30.0-100.0)
== END ==
LOC: SKLAB2 07:00
DX: E55.9 Vitamin D deficiency, unspecified (principal); Z79.01 Long term (current) use of anticoagulants